=== PATIENT | female | born 1940 | race Caucasian/White ===

== ENCOUNTER 2021-03-07 11:25 | Outpatient (REF) | payer MEDICARE, SELFPAY ==
[2021-03-07 13:59] LABS: Hematocrit 43.9 % (37-47); Hemoglobin 13.8 g/dl (12.0-16.0); Mean Corpuscular HGB Conc 31.4 g/dl (31.0-35.0); Mean Corpuscular Hemoglobin 30.3 pg (27.0-33.0); Mean Corpuscular Volume 96.5 fL (80-98); Mean Platelet Volume 11.3 fL (9.4-12.3); Platelet Count 345 X10*3/uL (160-400); Red Blood Count 4.55 X10*6/uL (4.20-5.50); Red Cell Distribution Width 13.6 % (11.0-16.0); White Blood Count 7.5 X10*3/uL (4.8-10.8)
[2021-03-07 14:21] LABS: Alanine Aminotransferase 18 U/L (0-31); Albumin Level 4.5 g/dL (3.5-5.0); Alkaline Phosphatase 91 U/L (39-117); Anion Gap 18 (12-20); Aspartate Amino Transferase 28 U/L (5-31); Bilirubin Total 0.7 mg/dL (0.0-1.0); Blood Urea Nitrogen 23 mg/dL (9-16); Calcium 9.8 mg/dL (8.4-10.2); Carbon Dioxide 24 mmol/L (22-29); Chloride 106 mmol/L (96-108); Cholesterol 197 mg/dL; Estimated Glomerular Filt Rate 45; Glucose Fasting 100 mg/dL (60-99); HDL Cholesterol 39 mg/dL; LDL Cholesterol Calculated 125 mg/dl; Potassium 4.3 mmol/L (3.3-5.1); Sodium 144 mmol/L (135-145); Total Protein 7.6 g/dL (6.5-8.0); Triglycerides 167 mg/dL
[2021-03-07 14:42] LABS: TSH reflex Free T4 1.93 uIU/mL (0.32-4.0); Vitamin D 25-OH Total 37.2 ng/mL (>30)
[2021-03-07 14:48] LABS: Folate > 20.0 ng/mL (> or = 4.0); Vitamin B12 638 pg/mL (200-900)
== END 2021-03-07 11:26 | disposition home or self-care (01) ==
LOC: HO.HMGCLDS 11:25
PROVIDERS: PCP Internal Medicine; Visit Provider Internal Medicine
DX: I10 Essential (primary) hypertension (principal); R41.3 Other amnesia; F03.90 Unspecified dementia, unspecified severity, without behavioral disturbance, psychotic disturbance, mood disturbance, and anxiety; H91.90 Unspecified hearing loss, unspecified ear
CPT/HCPCS: 36415; 80053; 80061; 82306; 82607; 82746; 84443; 85027

== ENCOUNTER 2021-10-13 21:22 | Inpatient (IN) | payer MEDICARE, SELFPAY ==
--- NOTE | 2021-10-13 | ECG_ITS ---
Test Reason : AFIB Blood Pressure : / mmHG Vent. Rate : 102 BPM Atrial Rate : 102 BPM P-R Int : 124 ms QRS Dur : 064 ms QT Int : 358 ms P-R-T Axes : 053 -10 075 degrees QTc Int : 466 ms Sinus tachycardia Minimal voltage criteria for LVH, may be normal variant ( R in aVL ) Inferior infarct , age undetermined Abnormal ECG No previous ECGs available Referred By: Mark Mcfarland Electronically Signed By:PEDRO TSANG
--- NOTE | ~2021-10-13 | XR_ITS ---
EXAMINATION: XR CHEST CLINICAL INFORMATION: Fall, cough, decreased oxygen saturation. COMPARISON: None TECHNIQUE: AP view of the chest was obtained. FINDINGS: Significant asymmetric elevation of the right hemidiaphragm. The cardiomediastinal silhouette is displaced to the left by the mass effect from the elevated diaphragm. Mitral annular calcifications and atherosclerotic disease of the thoracic aorta are identified. There is diffuse interstitial prominence without dense airspace opacities, pleural effusions or pneumothorax. No evidence of acute osseous abnormalities. XR/XR chest 1V IMPRESSION: Significant asymmetric elevation of the right hemidiaphragm. Interstitial prominence which acutely could be related with an infectious or inflammatory process of the small airways. No evidence of pulmonary edema, pleural effusions or pneumothorax.
--- NOTE | ~2021-10-13 | CT_ITS ---
EXAMINATION: CT ANGIOGRAM NECK CLINICAL INFORMATION: Carotid stenosis. Further evaluate. COMPARISON: Carotid ultrasound report from 10/14/2021. TECHNIQUE: Test bolus sequences followed by intravenous administration 70 mL of Omnipaque 350. Helical imaging was performed in the axial plane from the mediastinum to the yuhaaviatam of Hernandez. Delayed postcontrast imaging of the head was also performed. The data was processed at the cat scan technologist's workstation for generation of MIP sequences. Three-dimensional volume rendered reformatted images were also generated at an offline 3-D workstation. Stenoses are assessed in accordance with NASCET criteria unless otherwise indicated. This CT examination was performed using dose optimization techniques as appropriate, variously including the following: *Automated exposure control *Adjustment of mA and/or kV according to patient size (this includes techniques or standardized protocols for targeted exams where dose is matched to indication/reason for exam; i.e. extremities or head) *Use of iterative reconstruction technique DLP: 437 mGy-cm FINDINGS: There is suboptimal timing of the contrast bolus with a greater degree of contrast opacification in the pulmonary arteries compared to the aortic arch and great vessels. The imaged aortic arch and origins of the great vessels are patent with mild atherosclerotic wall calcifications. The innominate artery and subclavian arteries appear normal. The right common carotid artery is normal in caliber. Mild atherosclerotic wall calcifications present at the right carotid bifurcation without luminal narrowing. There is minimal lipid-rich atheromatous plaque along the posterior wall of the proximal right internal carotid artery without stenosis. The remainder of the cervical right ICA is normal. The left vertebral artery opacifies normally. There is absence of contrast opacification in the right vertebral artery, indicative for an age-indeterminate vascular occlusion. There is incomplete trace contrast in the V3 segment of the right vertebral artery which is likely due to either a certain degree of collateral flow from a muscular branch or retrograde flow from the vertebrobasilar confluence. Although there is contrast in the distal intradural right vertebral artery to the level of the PICA branch, there is absence of contrast in the proximal right vertebral artery at the craniocervical junction. There is diminished contrast opacification in the proximal left common carotid artery with progressive decreased opacification in the vessel and no visible contrast seen in the distal portion of the left common carotid artery. Significant atherosclerotic wall calcification present at the left carotid bifurcation with absence of contrast opacification in the left internal carotid artery, consistent with vascular occlusion. Intracranially, there is absence of contrast within the petrous, laceral, and cavernous segments of the left internal carotid artery. There is contrast visible in the diminutive supraclinoid left internal carotid artery which may be due to retrograde flow from the ophthalmic branch. Asymmetrically diminished contrast opacification present in the left MCA vasculature compared to the right side. There is no contrast opacification of the left A1 segment which may be due to an underlying occlusion. The intracranial right internal carotid artery opacifies normally with [id number] wall calcifications in the genu and ophthalmic segments of the vessel without significant stenosis. There is a focal moderate stenosis in the communicating segment of the distal supraclinoid right internal carotid artery. The right MCA vascular complex opacifies normally. There is normal contrast opacification in the right ELBA vasculature. [id number] stenoses present in the -type right posterior cerebral artery. There is a moderate stenosis in the P2 segment of the left posterior cerebral artery. Distally, there is poor contrast opacification in the temporal branch of the left posterior cerebral artery. The imaged portions of the intracranial venous sinuses opacify normally. Moderate diffuse parenchymal volume loss noted. There is a chronic infarct in the anterior right basal ganglia. Chronic-appearing lacunar infarct noted in the left caudate head. There are age-indeterminate infarcts in the left frontal lobe. Subsegmental atelectatic changes noted in the lungs with breathing motion artifacts. Nhnh-dv-lfemfzti spondylosis visible at the C5-C6 level. No acute osseous abnormality is seen. The imaged mediastinum appears normal. Dystrophic calcification visible in the left thyroid lobe. CT/CT angio neck IMPRESSION: Absence of contrast opacification in the cervical right vertebral artery, indicative for age-indeterminate vessel occlusion. Incomplete trace contrast visible in the distal V3 segment presumed collateral flow. Progressive decreased contrast opacification in the left common carotid artery with absence of contrast in the left internal carotid artery due to vascular occlusion. Asymmetric diminished caliber and avidity of contrast opacification in the supraclinoid left internal carotid artery and left MCA vasculature compared to the right side. No visible contrast in the left A1 segment. Moderate focal stenosis in the communicating segment of the supraclinoid right internal carotid artery. Efye-ij-[id number] stenoses in the right posterior cerebral artery. Moderate stenosis in the P2 segment of the left FIELD OPERATOR. Moderate diffuse brain parenchymal volume loss and age-indeterminate infarcts in the left frontal lobe. Imaging findings reported to Dr. Moss at 7:12 PM on 10/16/2021.
--- NOTE | ~2021-10-13 | CT_ITS ---
EXAMINATION: CT CHEST WITHOUT CONTRAST CLINICAL INFORMATION: Increased interstitial markings on x-ray. Rule out pneumonia. COMPARISON: Radiograph from today. TECHNIQUE: Multidetector volumetric CT imaging of the chest was done. Axial MIP volume rendering provided. Sagittal and coronal reformatted images were obtained. This CT examination was performed using dose optimization techniques as appropriate, variously including the following: *Automated exposure control *Adjustment of mA and/or kV according to patient size (this includes techniques or standardized protocols for targeted exams where dose is matched to indication/reason for exam; i.e. extremities or head) *Use of iterative reconstruction technique DLP: 266 mGy-cm FINDINGS: ACETYLENE CUTTER: Elevated right hemidiaphragm. LUNGS: The central airways are patent. Bibasilar atelectasis noted. Minimal groundglass opacity seen in the right upper lobe with mild bronchial wall thickening noted. No dense consolidation. No pneumothorax. MEDIASTINUM: Normal heart size. Coronary artery calcification. No pericardial effusion. No mediastinal lymphadenopathy. PLEURA: There is no pleural effusion. No pleural mass or thickening. AXILLA: No lymphadenopathy. UPPER ABDOMEN: Unremarkable. OSSEOUS STRUCTURES: No acute or suspicious osseous abnormality. Mild degenerative change of the spine. CT/CT chest wo con IMPRESSION: Prominent elevation of the right hemidiaphragm. No dense consolidation. Mild bronchial wall thickening with groundglass opacification noted in the right upper lobe which could be infectious or inflammatory. Fleischner guidelines were followed.
--- NOTE | ~2021-10-13 | US_ITS ---
EXAMINATION: US EXTRACRANIAL CAROTID DUPLEX, BILATERAL CLINICAL INFORMATION: History of fall. Subacute stroke. COMPARISON: None TECHNIQUE: Real-time ultrasound and Doppler techniques (integrating B-mode 2-D vascular images, Doppler spectral analysis and color-flow Doppler imaging) were utilized to interrogate the extracranial carotid arteries, the vertebral arteries and proximal subclavian arteries bilaterally. The degree of stenosis is determined by criteria similar to NASCET. FINDINGS: Right Side: Mild atherosclerotic plaque seen in the bifurcation/proximal ICA region. The common carotid artery peak systolic velocity proximally is 79 cm/s and distally 61 cm/s. The proximal internal carotid artery velocities are 101 cm/s systolic and 22 cm/s diastolic. The proximal external carotid artery PSV is 123 cm/s. The vertebral artery shows antegrade flow, peak velocity of 19 cm/s. The subclavian artery waveforms are normal, peak velocity of 146 cm/s. Left Side: Right Side: Moderate to severe atherosclerotic plaque seen in the bifurcation/bulb region. The common carotid artery peak systolic velocity proximally is 25 cm/s and distally 13 cm/s. The distal CCA has weak, tardus parvus flow pattern The proximal internal carotid artery velocities are 57 cm/s systolic and 15 cm/s diastolic. ICA/CCA ratio is 4.38. The proximal external carotid artery PSV is 581 cm/s. The vertebral artery shows antegrade flow, peak velocity of 92 cm/s. The subclavian artery waveforms are normal, peak velocity of 225 cm/s. US/US carotid duplex BI IMPRESSION: There is carotid artery atherosclerotic disease. On the right, the mild atherosclerotic plaque causes < 50% ICA stenosis. There is no hemodynamically significant stenosis on the right. However, on the left, Doppler findings are more complex. There is diminished velocity flow in the left CCA which has tardus parvus waveform. This suggest possibility of a more proximal stenosis. There are Doppler imaging findings of severe stenosis of the proximal left external carotid artery. Although the left ICA only has a peak systolic velocity of 57 cm/s, the ICA/CCA ratio is abnormal (>4), which raises suspicion for hemodynamically significant stenosis (possible >70% stenosis). Consider correlation with CT angiography of the neck.
--- NOTE | ~2021-10-13 | CT_ITS ---
EXAMINATION: CT HEAD WITHOUT CONTRAST CT CERVICAL SPINE WITHOUT CONTRAST CLINICAL INFORMATION: Fall, head injury, rule out fracture, bleed or stroke. COMPARISON: None. TECHNIQUE: Contiguous axial imaging was performed from the skull base to vertex without intravenous administration of contrast. Contiguous axial imaging was performed from the upper chest through the skull base without intravenous administration of contrast. Coronal and sagittal reformats were obtained at the acquisition workstation. This CT examination was performed using dose optimization techniques as appropriate, variously including the following: *Automated exposure control *Adjustment of mA and/or kV according to patient size (this includes techniques or standardized protocols for targeted exams where dose is matched to indication/reason for exam; i.e. extremities or head) *Use of iterative reconstruction technique DLP: 335 mGy-cm FINDINGS: Head: There are age indeterminate infarctions in the left frontal lobe (image 50 of series 3) and more superiorly on the precentral sulcus (image 59 of series 3). There is no evidence of significant associated mass effect or hemorrhagic conversion. There is moderate chronic microangiopathy and generalized cerebral volume loss with mineralization of the basal ganglia and chronic lacunar infarctions. There is no evidence of obstructive hydrocephalus. No abnormal mass effect or midline shift. No extra-axial fluid collections. No acute soft tissue or osseous abnormalities. The mastoid air cells and paranasal sinuses are clear. Cervical Spine: The atlantooccipital and atlantoaxial articulations remain well aligned. Straightening of the normal cervical lordosis. Otherwise, there is anatomic alignment of the vertebral bodies and posterior elements. No evidence of acute fracture or subluxation. There is multilevel cervical spondylosis leading to varying degrees of neural foraminal encroachment and central canal narrowing. There is no prevertebral soft tissue swelling. There is a calcification in the left lobe of the thyroid. Remaining of the cervical soft tissues are within normal limits. Evaluation of the lung apices is limited by motion. However accounting for these limitations, there is architectural distortion and pleural thickening in the lung apices with subpleural calcifications. CT/CT cervical spine wo con IMPRESSION: Age indeterminate cerebrovascular accidents in the left frontal lobe. These appear to be subacute to chronic and without associated mass effect nor hemorrhagic compression. However, certainty of the acuity cannot be obtained in the absence of prior imaging and if indicated further characterization could be performed with a MR of the brain. No acute intraparenchymal bleeding. No acute cervical fractures or malalignment. Multilevel cervical spondylosis. This critical result was discussed with Dr Ramirez at 10/13/2021 11:26 PM and it was ascertained that the content and urgency of the report was understood at the time of direct communication.
[2021-10-13 21:34] VITALS: BP 162/91; PULSE 110; PULSE 115; RESP 18; TEMP 37.1; O2SAT 91; O2SAT 92; BMI 29.9
--- NOTE | 2021-10-13 22:08 | ED.GENADULT ---
HPI - General Adult General Chief complaint: Weakness Stated complaint: weakness/tremors, new on a-fib (increase in falls) Time Seen by Provider: 10/13/21 21:50 Source: patient and family (, David) Mode of arrival: ambulatory Limitations: no limitations History of Present Illness HPI narrative: 80-year-old female who presents emergency department for evaluation of a fall at home. The information came from the patient's David. He states that the patient was sitting at the table on her walker which has a seat. The patient was eating a sandwich. The patient went in the other room to turn on the news. He states that he heard the patient fall and he went back into the kitchen and she was lying on the kitchen floor. He does not think that she had any loss of consciousness but the patient states she did strike her head when she fell. The states that the patient has been weak over the past several days without any specific symptoms. He states that she has been more confused over the past several months and the patient's PCP wanted to get a CT scan of her head which the patient refused. The patient currently is complaining of headache, neck pain and back pain from the fall. She denied chest pain, shortness of breath. The states the patient has had a cough times several months. The patient denied nausea, vomiting, abdominal pain or diarrhea. She also denied frequency, urgency or dysuria. Related Data Previous Rx's Medication Instructions Recorded amlodipine 10 mg tablet 10 mg PO DAILY #90 tab 03/07/21 metoprolol succinate 100 mg 100 mg PO BEDTIME #90 tab 03/07/21 tablet,extended release 24 hr triamterene 37.5 1 tab PO DAILY #90 tab 03/07/21 mg-hydrochlorothiazide 25 mg tablet Allergies Allergy/AdvReac Type Severity Reaction Status Date / Time No Known Allergies Allergy Verified 10/10/21 11:26 Review of Systems Review of Systems: Yes all other systems are reviewed and are negative [facility] Past Medical History [facility] Narrative: Social history: The patient is and she lives with her . Her son also lives up stairs with his girlfriend and they help the patient care for herself. The patient denies tobacco use. She states she drinks alcohol in moderation but did not drink tonight. She denies alcohol use. Medical History Bilateral cataracts Dementia Hearing loss HTN (hypertension) Incontinence Tremor Vaginal prolapse Vitamin D deficiency Family History Family History Father Alzheimer disease Mother Alzheimer disease HTN (hypertension) Social History Social History Housing: House Alcohol intake: current Alcohol intake frequency: does not drink Patient Tobacco Use Status: Never used Tobacco e-Cigarette/Vaping Use: Never Used Advance Directives: No Advance Directives Information Provided: Yes Current occupational status: retired Physical Exam Vital Signs: Vital Signs: Last Vital Signs Temp 98.8 F 10/13/21 21:34 Pulse 89 10/13/21 23:38 Resp 16 10/13/21 23:38 BP 140/77 H 10/13/21 23:38 Pulse Ox 95 10/13/21 23:38 BMI result Body Mass Index 29.9 Const: General: cooperative and no acute distress Orientation/consciousness: oriented to person and oriented to place Limitations: no limitations HENMT: Head: Yes normal to inspection, Yes normocephalic and Yes atraumatic Ears: external ears normal General nose exam: Normal external nose present Face and sinus: Yes normal facial exam Mouth: Normal oral and palatal mucosa present Throat: Yes posterior oropharynx normal Eyes: General: appearance normal, both eyes and all related structures Pupils: Equal, round and reactive pupils present Neck: Other: Tender cervical spine and trapezius muscles bilaterally Neck: Yes normal visual inspection, Yes no lymphadenopathy, Yes trachea midline and Yes supple Chest: Chest palpation & inspection: normal inspection of the chest and normal palpation of entire chest wall Resp: Effort & Inspection: normal respiratory effort and able to speak in complete sentences Auscultation: clear to auscultation bilaterally Cardio: Rate: regular rate Rhythm: regular rhythm Heart sounds: S1 normal heart sound present, S2 normal heart sound present and no murmurs GI: Inspection: Yes normal to inspection Palpation (GI): Soft to palpation, nontender and no guarding Auscultation: normal bowel sounds : General: Yes no CVA tenderness Back/Spine/Pelvis: Back: no CVA tenderness Skin: General skin exam: no rashes or lesions noted Neuro: General: oriented to person and oriented to place Cranial nerves: Yes CN's II-XII intact bilaterally and Yes Equal, round and reactive pupils present Cognition (Neuro): normal cognition Motor exam (neuro): 5/5 motor strength present throughout Extrem: General: Yes normal to inspection Psych: Appearance: grossly normal Speech and movement: Normal speech and movement present Affect: normal affect Attitude: cooperative Thought process: Normal thought process present Thought content: Normal thought content present Course Course Course Narrative: 80-year-old female who presents emergency department for evaluation of injuries from a fall that occurred just prior to coming to the emergency department. Patient was at the kitchen table, eating a sandwich, sitting sitting on her walker which had a chair when she fell in the kitchen. The believes that the patient tried to push back with a walker causing her to fall to the floor. The did not witness the fall but came immediately after she fell and states the patient was awake and alert conscious. The patient has been having weakness over the past several days, a chronic cough x6 months and increased confusion over the past 2 months. Patient currently complain of a headache, neck pain and back pain otherwise had no other complaints. Initial vital signs revealed an elevated pulse of 115, low O2 saturation of 91% on room air otherwise were unremarkable. Physical examination did reveal neck tenderness otherwise was unremarkable. I ordered a CBC, CMP, CK, blood alcohol level, lipase, troponin, EKG, urinalysis, urine drug screen, chest x-ray one view, CT scan of the head and cervical spine. 2359: Laboratory evaluation: CBC was normal. CMP revealed elevated chloride of 109, low bicarb of 21, elevated BUN of 50 with an elevated creatinine of 1.81 this is new compared to 03/07/2021 when the BUN and creatinine were 23 and 1.17. BNP was only slightly elevated 102. Chest x-ray was concerning for elevated right hemidiaphragm and interstitial infiltrates. CT scan of the head did reveal a right frontal lobe infarct which the radiologist felt was a subacute or chronic infarct. There was no mass effect. CT scan of the chest without the IV contrast is concerning for possible right upper lobe infiltrate. Given these finding which were resulted at 11:54 p.m. I ordered blood cultures x2, lactic acid. The patient will be treated with normal saline IV x1 L, ceftriaxone 1 g IV and azithromycin 500 mg IV. I will discuss admission with the covering hospitalist. Medical Decision Making Lab Data Result diagrams: 10/13/21 22:12 10/13/21 22:12 Labs: Lab Results 10/13/21 10/13/21 10/13/21 Range/Units 22:12 22:12 22:12 WBC 9.5 (4.8-10.8) X10*3/uL RBC 4.11 L (4.20-5.50) X10*6/uL Hgb 13.1 (12.0-16.0) g/dl Hct 39.9 (37.0-47.0) % MCV 97.1 (80.0-98.0) fL MCH 31.9 (27.0-33.0) pg MCHC 32.8 (31.0-35.0) g/dl RDW 12.5 (11.0-16.0) % Plt Count 295 (160-400) X10*3/uL MPV 10.5 (9.4-12.3) fL Immature Gran % (Auto) 0.4 (0.0-0.4) % Neut % (Auto) 85.2 H (45-73) % Lymph % (Auto) 6.3 L (20-40) % [place] % (Auto) 7.8 (2-11) % Eos % (Auto) 0.2 (0-4) % Baso % (Auto) 0.1 (0-2) % Lymph # (Auto) 0.6 L (1.2-4.9) X10*3/uL [place] # (Auto) 0.7 (0.1-1.2) X10*3/uL Eos # (Auto) 0.0 (0.0-0.4) X10*3/uL Baso # (Auto) 0.0 (0.0-0.2) X10*3/uL Abs Immat Gran (auto) 0.04 H (0.00-0.03) X10*3/uL Absolute Neuts (auto) 8.1 (2.0-8.3) x10*3/uL Absolute Nucleated RBC 0.000 (0.0-0.012) X10*3/uL Nucleated RBC % (auto) 0.0 (0.0-0.2) /100WBC Sodium 143 (135-145) mmol/L Potassium 4.8 (3.3-5.1) mmol/L Chloride 109 H (96-108) mmol/L Carbon Dioxide 21 L (22-29) mmol/L Anion Gap 18 (12-20) BUN 51 H (9-16) mg/dL Creatinine 1.81 H (0.5-1.4) mg/dL Estim Creat Clear Calc 26.5 Estimated GFR 27 Random Glucose 126 H (60-115) mg/dL Calcium 9.7 (8.4-10.2) mg/dL Total Bilirubin 0.6 (0.0-1.0) mg/dL AST 26 (5-31) U/L ALT 18 (0-31) U/L Alkaline Phosphatase 77 (39-117) U/L Total Creatine Kinase 149 H (26-140) U/L Troponin I High Sens 53.7 H* (<3.5-17.0) ng/L B-Natriuretic Peptide 102 H (<100) pg/mL Total Protein 7.3 (6.5-8.0) g/dL Albumin 4.2 (3.5-5.0) g/dL Lipase 53 (8-78) U/L Ethyl Alcohol mg/dL COVID-19 ([facility]) (Negative) COVID-19 Clin Com 10/13/21 10/13/21 Range/Units 22:12 22:12 WBC (4.8-10.8) X10*3/uL RBC (4.20-5.50) X10*6/uL Hgb (12.0-16.0) g/dl Hct (37.0-47.0) % MCV (80.0-98.0) fL MCH (27.0-33.0) pg MCHC (31.0-35.0) g/dl RDW (11.0-16.0) % Plt Count (160-400) X10*3/uL MPV (9.4-12.3) fL Immature Gran % (Auto) (0.0-0.4) % Neut % (Auto) (45-73) % Lymph % (Auto) (20-40) % [place] % (Auto) (2-11) % Eos % (Auto) (0-4) % Baso % (Auto) (0-2) % Lymph # (Auto) (1.2-4.9) X10*3/uL [place] # (Auto) (0.1-1.2) X10*3/uL Eos # (Auto) (0.0-0.4) X10*3/uL Baso # (Auto) (0.0-0.2) X10*3/uL Abs Immat Gran (auto) (0.00-0.03) X10*3/uL Absolute Neuts (auto) (2.0-8.3) x10*3/uL Absolute Nucleated RBC (0.0-0.012) X10*3/uL Nucleated RBC % (auto) (0.0-0.2) /100WBC Sodium (135-145) mmol/L Potassium (3.3-5.1) mmol/L Chloride (96-108) mmol/L Carbon Dioxide (22-29) mmol/L Anion Gap (12-20) BUN (9-16) mg/dL Creatinine (0.5-1.4) mg/dL Estim Creat Clear Calc Estimated GFR Random Glucose (60-115) mg/dL Calcium (8.4-10.2) mg/dL Total Bilirubin (0.0-1.0) mg/dL AST (5-31) U/L ALT (0-31) U/L Alkaline Phosphatase (39-117) U/L Total Creatine Kinase (26-140) U/L Troponin I High Sens (<3.5-17.0) ng/L B-Natriuretic Peptide (<100) pg/mL Total Protein (6.5-8.0) g/dL Albumin (3.5-5.0) g/dL Lipase (8-78) U/L Ethyl Alcohol < 10 mg/dL COVID-19 ([facility]) Negative (Negative) COVID-19 Clin Com See Note ECG Data Attestation: I personally reviewed and interpreted this ECG as follows: Interpretation: Of 0: Sinus tachycardia with rate of 102, normal MA interval, QRS duration, QTC intervals, no ST segment elevation, no ST segment depression, Q-waves in 3 and AVF, no T-wave abnormalities, no PACs, no PVCs, 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
[2021-10-13 22:21] LABS: MANUAL DIFF FLAG NO
[2021-10-13 22:23] LABS: Basophils Percent Auto 0.1 % (0-2); Eosinophils Percent Auto 0.2 % (0-4); Hematocrit 39.9 % (37.0-47.0); Hemoglobin 13.1 g/dl (12.0-16.0); Imm Gran Abs Auto 0.04 X10*3/uL (0.00-0.03); Imm Gran Pct Auto 0.4 % (0.0-0.4); Lymphocytes Absolute Auto 0.6 X10*3/uL (1.2-4.9); Lymphocytes Percent Auto 6.3 % (20-40); Mean Corpuscular HGB Conc 32.8 g/dl (31.0-35.0); Mean Corpuscular Hemoglobin 31.9 pg (27.0-33.0); Mean Corpuscular Volume 97.1 fL (80.0-98.0); Mean Platelet Volume 10.5 fL (9.4-12.3); Monocytes Absolute Auto 0.7 X10*3/uL (0.1-1.2); Monocytes Percent Auto 7.8 % (2-11); Neutrophils Absolute Auto 8.1 x10*3/uL (2.0-8.3); Neutrophils Percent Auto 85.2 % (45-73); Platelet Count 295 X10*3/uL (160-400); Red Blood Count 4.11 X10*6/uL (4.20-5.50); Red Cell Distribution Width 12.5 % (11.0-16.0); White Blood Count 9.5 X10*3/uL (4.8-10.8)
[2021-10-13 22:35] LABS: Ethanol < 10 mg/dL
[2021-10-13 22:38] LABS: COVID-19 Test Negative (Negative); IDNOW Serial# 9DD0AD1C
[2021-10-13 22:39] LABS: Alanine Aminotransferase 18 U/L (0-31); Albumin Level 4.2 g/dL (3.5-5.0); Alkaline Phosphatase 77 U/L (39-117); Anion Gap 18 (12-20); Aspartate Amino Transferase 26 U/L (5-31); Bilirubin Total 0.6 mg/dL (0.0-1.0); Blood Urea Nitrogen 51 mg/dL (9-16); Calcium 9.7 mg/dL (8.4-10.2); Carbon Dioxide 21 mmol/L (22-29); Chloride 109 mmol/L (96-108); Creatinine Clr Calc Pharmacy 26.5; Estimated Glomerular Filt Rate 27; Glucose Random 126 mg/dL (60-115); Lipase 53 U/L (8-78); Potassium 4.8 mmol/L (3.3-5.1); Sodium 143 mmol/L (135-145); Total Protein 7.3 g/dL (6.5-8.0)
[2021-10-13 22:45] LABS: Troponin-I High Sensitivity 53.7 ng/L (<3.5-17.0)
[2021-10-13 23:38] VITALS: BP 140/77; PULSE 89; RESP 16; O2SAT 95
[2021-10-13 23:50] LABS: B Type Natriuretic Peptide 102 pg/mL (<100)
[2021-10-14] MEDS: 0.9 % Sodium Chloride 1,000 ML 999 ML IV (00:17)
[2021-10-14] MEDS: cefTRIAXone sodium 1 GM in 0.9 % Sodium Chloride 50 ML IV ×2 (00:18→21:39)
[2021-10-14] MEDS: Azithromycin 500 MG in 0.9 % Sodium Chloride 250 ML 125 MG IV (00:19)
[2021-10-14 00:39] LABS: Lactic Acid 0.8 mmol/L (0.5-2.0)
--- NOTE | 2021-10-14 01:02 | P.HPHOSP_ITS ---
History of Present Illness Date of Service: 10/14/21 Chief Complaint: fall 80-year-old female with past medical history of advanced dementia, hypertension, who was brought into the hospital by her with complaints of a fall. On my exam patient is alert, but confused and unable to give much history. Theref ore history is obtained from ED physician as well as EMR. According to the hospital in patient was sitting at the table on this year over walker eating a sandwich and a soon as he left to go to the other room he heard the patient fall in the kitchen, he would back and found her lying on the kitchen floor. There does not appear to be any loss of consciousness but the patient did report that she hit her head when she fell. Is also report of patient having been feeling weak over the past several days. She seemed to be more confused over the past several months and generally weaker. A CT was ordered by her PCP but the patient refused. I am unable to get review of system is patient is confused and is not really giving appropriate answers. On arrival to the ED patient is hemodynamically stable with no significant abnormal vitals for a slightly elevated blood pressure of 140/77 Labs are significant for WBC count of 9.5, BUN of 51, creatinine of 1.81, initial troponin of 53.7, increased to 54.8, BNP of 102, Chest CT showed prominent elevation of the right hemidiaphragm, mild bronchial wall thickening with ground-glass opacification noted in the right upper lobe which could be infectious versus inflammatory Head CT showed age indeterminate cerebrovascular accident in the left frontal lobe, subacute to chronic without associated mass effect nor hemorrhagic conversion. Patient will be admitted for further management Review of Systems Review of Systems: Yes all other systems are reviewed and are negative [facility] Medical History Bilateral cataracts Dementia Hearing loss HTN (hypertension) Incontinence Tremor Vaginal prolapse Vitamin D deficiency Family History Father Alzheimer disease Mother Alzheimer disease HTN (hypertension) Social History Housing: House Alcohol intake: current Alcohol intake frequency: does not drink Patient Tobacco Use Status: Never used Tobacco e-Cigarette/Vaping Use: Never Used Advance Directives: No Advance Directives Information Provided: Yes Current occupational status: retired [employer] Allergies Allergy/AdvReac Type Severity Reaction Status Date / Time No Known Allergies Allergy Verified 10/10/21 11:26 Active Medications: Current Medications Azithromycin 500 mg/ Sodium (Chloride) 250 mls @ 125 mls/hr IV ONCE STA Stop: 10/14/21 01:12 Last Admin: 10/14/21 00:19 Dose: 125 mls/hr Documented by: Physical Exam Vital Signs and Narrative: Vital Signs: Last Vital Signs Temp 98.8 F 10/13/21 21:34 Pulse 89 10/13/21 23:38 Resp 16 10/13/21 23:38 BP 140/77 H 10/13/21 23:38 Pulse Ox 95 10/13/21 23:38 BMI result Body Mass Index 29.9 Const: Other: Patient is alert, awake but confused General: cooperative and no acute distress Eyes: Other: Left eye pupil is dilated, lag in conversion when complared to right Resp: Effort & Inspection: normal respiratory effort Auscultation: clear to auscultation bilaterally Cardio: Rate: regular rate Rhythm: regular rhythm GI: Palpation (GI): Soft to palpation Auscultation: normal bowel sounds Skin: General skin exam: no rashes or lesions noted Neuro: Other: left eye as above, unable to conduct cranial never exams appropriately as pt not following strength is 5/5 in all extremities Extrem: General: Yes normal to inspection and Yes no pedal edema Results Labs CBC and Chem 7: 10/13/21 22:12 10/13/21 22:12 Labs: Laboratory Results - last 24 hr 10/13/21 10/13/21 10/13/21 22:12 22:12 22:12 MCV 97.1 MCH 31.9 MCHC 32.8 RDW 12.5 Plt Count 295 MPV 10.5 Immature Gran % (Auto) 0.4 Neut % (Auto) 85.2 H Lymph % (Auto) 6.3 L [place] % (Auto) 7.8 Eos % (Auto) 0.2 Baso % (Auto) 0.1 Lymph # (Auto) 0.6 L [place] # (Auto) 0.7 Eos # (Auto) 0.0 Baso # (Auto) 0.0 Abs Immat Gran (auto) 0.04 H Absolute Neuts (auto) 8.1 Absolute Nucleated RBC 0.000 Nucleated RBC % (auto) 0.0 Anion Gap 18 Estim Creat Clear Calc 26.5 Estimated GFR 27 Random Glucose 126 H Lactic Acid Calcium 9.7 Total Bilirubin 0.6 AST 26 ALT 18 Alkaline Phosphatase 77 Total Creatine Kinase 149 H Troponin I High Sens 53.7 H* B-Natriuretic Peptide 102 H Total Protein 7.3 Albumin 4.2 Lipase 53 Ethyl Alcohol COVID-19 ([facility]) COVID-19 Clin Com 10/13/21 10/13/21 10/14/21 22:12 22:12 00:06 MCV MCH MCHC RDW Plt Count MPV Immature Gran % (Auto) Neut % (Auto) Lymph % (Auto) [place] % (Auto) Eos % (Auto) Baso % (Auto) Lymph # (Auto) [place] # (Auto) Eos # (Auto) Baso # (Auto) Abs Immat Gran (auto) Absolute Neuts (auto) Absolute Nucleated RBC Nucleated RBC % (auto) Anion Gap Estim Creat Clear Calc Estimated GFR Random Glucose Lactic Acid 0.8 Calcium Total Bilirubin AST ALT Alkaline Phosphatase Total Creatine Kinase Troponin I High Sens B-Natriuretic Peptide Total Protein Albumin Lipase Ethyl Alcohol < 10 COVID-19 ([facility]) Negative COVID-19 Clin Com See Note Imaging Radiologist's Impressions: Impressions Chest X-Ray 10/13/21 22:33 IMPRESSION: Significant asymmetric elevation of the right hemidiaphragm. Interstitial prominence which acutely could be related with an infectious or inflammatory process of the small airways. No evidence of pulmonary edema, pleural effusions or pneumothorax. Cervical Spine CT 10/13/21 22:48 IMPRESSION: Age indeterminate cerebrovascular accidents in the left frontal lobe. These appear to be subacute to chronic and without associated mass effect nor hemorrhagic compression. However, certainty of the acuity cannot be obtained in the absence of prior imaging and if indicated further characterization could be performed with a MR of the brain. No acute intraparenchymal bleeding. No acute cervical fractures or malalignment. Multilevel cervical spondylosis. This critical result was discussed with Dr Ramirez at 10/13/2021 11:26 PM and it was ascertained that the content and urgency of the report was understood at the time of direct communication. Head CT 10/13/21 22:48 IMPRESSION: Age indeterminate cerebrovascular accidents in the left frontal lobe. These appear to be subacute to chronic and without associated mass effect nor hemorrhagic compression. However, certainty of the acuity cannot be obtained in the absence of prior imaging and if indicated further characterization could be performed with a MR of the brain. No acute intraparenchymal bleeding. No acute cervical fractures or malalignment. Multilevel cervical spondylosis. This critical result was discussed with Dr Ramirez at 10/13/2021 11:26 PM and it was ascertained that the content and urgency of the report was understood at the time of direct communication. Chest CT 10/13/21 23:30 IMPRESSION: Prominent elevation of the right hemidiaphragm. No dense consolidation. Mild bronchial wall thickening with groundglass opacification noted in the right upper lobe which could be infectious or inflammatory. Fleischner guidelines were followed. Assessment and Plan (1) Pneumonia: Qualifiers: Laterality: right Lung location: upper lobe of lung Pneumonia type: due to unspecified organism Qualified Code(s): J18.9 - Pneumonia, unspecified organism Status: Acute (2) Acute kidney injury: Status: Acute (3) Stroke: Qualifiers: Laterality of affected vessel: left Status: Acute (4) Elevated troponin: Status: Acute (5) Fall: Qualifiers: Encounter type: initial encounter Qualified Code(s): W19.XXXA - Unspecified fall, initial encounter Status: Acute 80-year-old female with history of advanced dementia presents to the hospital after having a fall at home. Found to have pneumonia, CHELITA as well as stroke # pneumonia - most likely community-acquired - COVID 19 negative - afebrile, no leukocytosis - will start her on IV antibiotics - follow cultures # CHELITA - most likely secondary to dehydration given history of dementia and recent weakness - will start her on IV fluids - follow BMP # stroke - CT of the head showed findings of subacute versus chronic stroke - has left eye pupil dilation - WILL START ON ASPIRIN, HIGH-DOSE STATIN, - will consult neurology - patient unable to have CT angiogram done due to CHELITA - will hold off on MRI pending neurology recommendation - echocardiogram - physical therapy and liver profile # elevated troponin - unclear etiology - denies having any chest pain - no EKG changes to suggest ACS - no delta on the high sensitivity troponin - monitor on telemetry # fall - sepsis secondary to weakness/stroke - physical therapy consult DVT prophylaxis: Lovenox Quality Stroke Does the patient have a stroke diagnosis?: No VTE Prior VTE?: No VTE Risk Level:: Medical - moderate - high VTE Device Contraindication: Treatment Not Indicated VTE Drug Contraindication: N/A - Med Ordered
[2021-10-14 02:04] VITALS: BP 125/71; PULSE 87; RESP 18; O2SAT 93
[2021-10-14 02:22] LABS: Troponin-I High Sensitivity 54.8 ng/L (<3.5-17.0)
--- NOTE | 2021-10-14 04:43 | PC.NURSE ---
upon arrival to the ER pt appeared to be confused by stating its 1922 no focal deficits in regards to a stroke based on my examination, pt has a hx of COPD and dementia, pt has pulled IV out, physician thinks pt had a stroke within the past two weeks.
[2021-10-14 06:13] VITALS: BP 141/70; PULSE 80; RESP 18; TEMP 36.4; O2SAT 95
[2021-10-14] MEDS: Lactated Ringers 1,000 ML 100 ML IVCONT ×3 (06:21→20:05)
[2021-10-14] MEDS: Enoxaparin Sodium 40 MG/0.4 ML SYRINGE SUBCUT (06:21)
[2021-10-14] MEDS: Atorvastatin Calcium 40 MG TABLET PO ×2 (07:40→20:06)
[2021-10-14] MEDS: Aspirin Enteric Coated 81 MG TABLET.DR PO (07:40)
--- NOTE | 2021-10-14 07:42 | PC.NURSE ---
patient a&ox3, ivf running per order, pt medicated with meds previously due, no c/o pain or discomfort, pt has audible in/ex wheezing, will notify provider and continue to monitor.
[2021-10-14 08:26] LABS: MANUAL DIFF FLAG NO
[2021-10-14 08:37] LABS: Basophils Percent Auto 0.2 % (0-2); Eosinophils Absolute Auto 0.1 X10*3/uL (0.0-0.4); Eosinophils Percent Auto 1.7 % (0-4); Hematocrit 38.4 % (37.0-47.0); Hemoglobin 12.2 g/dl (12.0-16.0); Imm Gran Abs Auto 0.03 X10*3/uL (0.00-0.03); Imm Gran Pct Auto 0.4 % (0.0-0.4); Lymphocytes Absolute Auto 1.2 X10*3/uL (1.2-4.9); Mean Corpuscular HGB Conc 31.8 g/dl (31.0-35.0); Mean Corpuscular Hemoglobin 31.4 pg (27.0-33.0); Mean Platelet Volume 11.2 fL (9.4-12.3); Monocytes Absolute Auto 0.8 X10*3/uL (0.1-1.2); Monocytes Percent Auto 9.5 % (2-11); Neutrophils Absolute Auto 6.2 x10*3/uL (2.0-8.3); Neutrophils Percent Auto 74.2 % (45-73); Platelet Count 297 X10*3/uL (160-400); Red Blood Count 3.88 X10*6/uL (4.20-5.50); Red Cell Distribution Width 12.5 % (11.0-16.0); White Blood Count 8.3 X10*3/uL (4.8-10.8)
[2021-10-14 08:47] LABS: Anion Gap 16 (12-20); Blood Urea Nitrogen 43 mg/dL (9-16); Calcium 9.2 mg/dL (8.4-10.2); Carbon Dioxide 24 mmol/L (22-29); Chloride 109 mmol/L (96-108); Cholesterol 181 mg/dL; Creatinine Clr Calc Pharmacy 33.2; Estimated Glomerular Filt Rate 35; Glucose Random 95 mg/dL (60-115); HDL Cholesterol 35 mg/dL; LDL Cholesterol Calculated 119 mg/dl; Potassium 4.1 mmol/L (3.3-5.1); Sodium 145 mmol/L (135-145); Triglycerides 136 mg/dL
[2021-10-14 09:15] VITALS: BP 141/70; PULSE 80
[2021-10-14] MEDS: amLODIPine Besylate 10 MG TABLET PO (09:15)
[2021-10-14 09:42] LABS: Procalcitonin 0.06 ng/mL
[2021-10-14 10:10] LABS: Adenovirus PCR Not Detected (Not Detect.); Bordetella parapertussis PCR Not Detected (Not Detect.); Bordetella pertussis PCR Not Detected (Not Detect.); Chlamydia pneumoniae PCR Not Detected (Not Detect.); Coronavirus 229E PCR Not Detected (Not Detect.); Coronavirus HKU1 PCR Not Detected (Not Detect.); Coronavirus NL63 PCR Not Detected (Not Detect.); Coronavirus OC43 PCR Not Detected (Not Detect.); Human metapneumovirus PCR Not Detected (Not Detect.); Influenza A PCR Not Detected (Not Detect.); Influenza B PCR Not Detected (Not Detect.); Mycoplasma pneumoniae PCR Not Detected (Not Detect.); Parainfluenza 1 PCR Not Detected (Not Detect.); Parainfluenza 2 PCR Not Detected (Not Detect.); Parainfluenza 3 PCR Not Detected (Not Detect.); Parainfluenza 4 PCR Not Detected (Not Detect.); RSV PCR Not Detected (Not Detect.); Rhino/Enterovirus PCR Not Detected (Not Detect.); SARS-CoV-2 PCR Not Detected (Not Detect.)
--- NOTE | 2021-10-14 11:05 | PM.NEUROCN ---
History of Present Illness Data of Consult Service Date: 10/14/21 Primary Care Provider: Unknown Physician HPI Reason for consult: Altered mental status 80yr old woman with advanced dementia admitted from home after falling off chair and worsening confusion. Unable to give any information. CT brain shows subacute to chronic left frontal infarct and generalized atrophy Review of Systems Review of Systems: Yes all other systems are reviewed and are negative [facility] Past Medical History Medical History Bilateral cataracts Dementia Hearing loss HTN (hypertension) Incontinence Tremor Vaginal prolapse Vitamin D deficiency Family History Family History Father Alzheimer disease Mother Alzheimer disease HTN (hypertension) Social History Social History Housing: House Alcohol intake: current Alcohol intake frequency: does not drink Patient Tobacco Use Status: Never used Tobacco e-Cigarette/Vaping Use: Never Used Advance Directives: No Advance Directives Information Provided: Yes Current occupational status: retired [employer] Allergies Allergy/AdvReac Type Severity Reaction Status Date / Time No Known Allergies Allergy Verified 10/10/21 11:26 Active Medications: Current Medications Acetaminophen (Acetaminophen 325 Mg Tablet) 650 mg PO Q6H PRN PRN Reason: Pain, Mild (Pain Scale 1-3) Albuterol Sulfate (Albuterol Sulfate (0.083%) 2.5 Mg/3 Ml Vial.Neb) 2.5 mg INHALE Q2H PRN PRN Reason: shortness of breath or wheeze Albuterol/Ipratropium (Albuterol/Iprat 2.5/0.5mg 3 Ml Ampul.Neb) 3 ml INHALE RQ6H WHILE AWAKE [facility] Amlodipine Besylate (Amlodipine Besylate 10 Mg Tablet) 10 mg PO DAILY [facility]; Protocol Last Admin: 10/14/21 09:15 Dose: 10 mg Documented by: Aspirin (Aspirin Enteric Coated 81 Mg Tablet.) 81 mg PO DAILY [facility] Last Admin: 10/14/21 07:43 Dose: Not Given Documented by: Atorvastatin Calcium (Atorvastatin Calcium 40 Mg Tablet) 40 mg PO BEDTIME [facility] Last Admin: 10/14/21 07:40 Dose: 40 mg Documented by: Docusate Sodium (Docusate Sodium 100 Mg Capsule) 100 mg PO DAILY PRN PRN Reason: Constipation Enoxaparin Sodium (Enoxaparin Sodium 40 Mg/0.4 Ml Syringe) 40 mg SUBCUT Q24H [facility] Last Admin: 10/14/21 06:21 Dose: 40 mg Documented by: Ceftriaxone Sodium 1 gm/ (Sodium Chloride) 50 mls @ 100 mls/hr IV Q24H [facility] Lactated Ringer's (Lr) 1,000 mls @ 100 mls/hr IVCONT .Q10H [facility] Last Admin: 10/14/21 06:21 Dose: 100 mls/hr Documented by: Doxycycline Hyclate 100 mg/ (Sodium Chloride) 250 mls @ 166.67 mls/hr IV Q12H [facility] Metoprolol Succinate (Metoprolol Succinate Er 100 Mg Tab.Er.24h) 100 mg PO BEDTIME [facility]; Protocol Ondansetron HCl (Ondansetron Hcl 4 Mg/2 Ml Vial) 4 mg IVPUSH Q8H PRN PRN Reason: Nausea and Vomiting Sodium Chloride (0.9 % Sodium Chloride Flush 3 Ml Syringe) 3 ml IVFLUSH QSHIFT [facility] Last Admin: 10/14/21 07:40 Dose: Not Given Documented by: Physical Exam Vital Signs: Vital Signs: Last Vital Signs Temp 97.6 F 10/14/21 06:13 Pulse 80 10/14/21 09:15 Resp 18 10/14/21 06:13 BP 141/70 H 10/14/21 09:15 Pulse Ox 95 10/14/21 06:13 BMI result Body Mass Index 29.9 Const: Other: Patient is alert, awake but confused General: cooperative and no acute distress Orientation/consciousness: oriented to person Limitations: no limitations HENMT: Head: Yes normal to inspection, Yes normocephalic and Yes atraumatic Ears: external ears normal General nose exam: Normal external nose present Face and sinus: Yes normal facial exam Mouth: Normal oral and palatal mucosa present Throat: Yes posterior oropharynx normal Eyes: Other: Left eye pupil is dilated, lag in conversion when complared to right General: appearance normal, both eyes and all related structures Pupils: Equal, round and reactive pupils present Neck: Other: Tender cervical spine and trapezius muscles bilaterally Neck: Yes normal visual inspection, Yes no lymphadenopathy, Yes trachea midline and Yes supple Chest: Chest palpation & inspection: normal inspection of the chest and normal palpation of entire chest wall Resp: Effort & Inspection: normal respiratory effort and able to speak in complete sentences Auscultation: clear to auscultation bilaterally Cardio: Rate: regular rate Rhythm: regular rhythm Heart sounds: S1 normal heart sound present, S2 normal heart sound present and no murmurs GI: Inspection: Yes normal to inspection Palpation (GI): Soft to palpation, nontender and no guarding Auscultation: normal bowel sounds : General: Yes no CVA tenderness Back/Spine/Pelvis: Back: no CVA tenderness Skin: General skin exam: no rashes or lesions noted Neuro: Other: Limited exam because of mental status. Neck supple, non focal exam. Does not follow 2 step commands. General: oriented to person Cranial nerves: Yes CN's II-XII intact bilaterally and Yes Equal, round and reactive pupils present Cognition (Neuro): normal cognition Motor exam (neuro): 5/5 motor strength present throughout Extrem: General: Yes normal to inspection and Yes no pedal edema Psych: Appearance: grossly normal Speech and movement: Normal speech and movement present Affect: normal affect Attitude: cooperative Thought process: Normal thought process present Thought content: Normal thought content present Results Labs CBC & Chem 7: 10/14/21 07:37 10/14/21 07:37 Labs: Short CBC 10/13/21 10/14/21 Range/Units 22:12 07:37 WBC 9.5 8.3 (4.8-10.8) X10*3/uL Hgb 13.1 12.2 (12.0-16.0) g/dl Hct 39.9 38.4 (37.0-47.0) % Plt Count 295 297 (160-400) X10*3/uL [facility] 10/13/21 10/14/21 22:12 07:37 Sodium 143 145 Potassium 4.8 4.1 Chloride 109 H 109 H Carbon Dioxide 21 L 24 BUN 51 H 43 H Creatinine 1.81 H 1.45 H Calcium 9.7 9.2 Cardiac Enzymes 10/13/21 Range/Units 22:12 Total Creatine Kinase 149 H (26-140) U/L Liver Function 10/13/21 Range/Units 22:12 Total Bilirubin 0.6 (0.0-1.0) mg/dL AST 26 (5-31) U/L ALT 18 (0-31) U/L Alkaline Phosphatase 77 (39-117) U/L Albumin 4.2 (3.5-5.0) g/dL Assessment and Plan (1) Pneumonia: Qualifiers: Laterality: right Lung location: upper lobe of lung Pneumonia type: due to unspecified organism Qualified Code(s): J18.9 - Pneumonia, unspecified organism Status: Acute (2) Acute kidney injury: Status: Acute (3) Stroke: Qualifiers: Laterality of affected vessel: left Status: Acute This is a subacute to chronic left frontal infarct from several weeks ago. Recommend : carotid doppler and Echocardiogram. Metabolic / infectious encephalopathy superimposed on dementia. Her mental decline 2 months ago may be from thi sstroke that occurred in that time frame. REcom. Hydration, treat infection. (4) Elevated troponin: Status: Acute (5) Fall: Qualifiers: Encounter type: initial encounter Qualified Code(s): W19.XXXA - Unspecified fall, initial encounter Status: Acute 80-year-old female with history of advanced dementia presents to the hospital after having a fall at home. Found to have pneumonia, CHELITA as well as stroke # pneumonia - most likely community-acquired - COVID 19 negative - afebrile, no leukocytosis - will start her on IV antibiotics - follow cultures # CHELITA - most likely secondary to dehydration given history of dementia and recent weakness - will start her on IV fluids - follow BMP # stroke - CT of the head showed findings of subacute versus chronic stroke - has left eye pupil dilation - WILL START ON ASPIRIN, HIGH-DOSE STATIN, - will consult neurology - patient unable to have CT angiogram done due to CHELITA - will hold off on MRI pending neurology recommendation - echocardiogram - physical therapy and liver profile # elevated troponin - unclear etiology - denies having any chest pain - no EKG changes to suggest ACS - no delta on the high sensitivity troponin - monitor on telemetry # fall - sepsis secondary to weakness/stroke - physical therapy consult DVT prophylaxis: Lovenox Procedures Date of Service Date of Service: 10/14/21
--- NOTE | 2021-10-14 12:05 | PC.NURSE ---
patient was taken to US, will hand antibiotics upon her return
[2021-10-14] MEDS: Doxycycline Hyclate 100 MG in 0.9 % Sodium Chloride 250 ML 166.67 MG IV ×2 (13:04→22:14)
--- NOTE | 2021-10-14 13:43 | P.EN_ITS ---
Event Note Date of Service: 10/14/21 Event Note: day hospitalist update S: Unable to get reliable ROS from pt due to dementia. Denies complaints. O: VS- T 97.6, P 80, BP 141/70, R 18, SaO2 95 on RA gen- NAD lungs- CTAB CV- RRR no m/r/g abd- soft/NT derm- warm/well-perfused neuro- L pupil larger than R, reactive, normal strength in all 4 ext, oriented to self but not place or date psych- impaired insight labs- RVP negative, PCT 0.06, WBC 8.3, Cr 1.45 A/P: 80yo F with dementia presenting after fall, admitted for PNA + CHELITA and found to have evidence of subacute-chronic CVA # subacute/chronic CVA - TTE, carotid Dopplers, Neuro consult, ASA, atorvastatin # PNA - ceftriaxone + doxycycline d#1, follow BCx + trend PCT # troponin-I elevation - flat, likely due to CHELITA # HCELITA - Cr improving with IV hydration # HTN - amlodipine + metoprolol succinate # dementia # dispo - PT/OT/[employer] evaluations Discussed with pt's Tino. Notably pt had recent cataract surgery on the L eye
--- NOTE | 2021-10-14 13:49 | PC.NURSE ---
patient awake/alert, ate 100% lunch, abx running per order, will restart fluids when complete, continue to monitor.
--- NOTE | 2021-10-14 14:46 | PC.NURSE ---
respiratory notified for updraft
[2021-10-14 17:02] VITALS: BP 156/70; PULSE 91; RESP 18; TEMP 36.7; O2SAT 95
--- NOTE | 2021-10-14 17:04 | PC.NURSE ---
patient sleeping, woke to verbal stimulus, vss, no c/o pain or discomfort, ivf running per order, will continue to monitor.
--- NOTE | 2021-10-14 18:20 | PC.NURSE ---
patient alert to person, oob with 2 assist ambulated to bathroom, ivf running per order, pt dinner tray is set up, call zapata within reach, will continue to monitor.
[2021-10-14] MEDS: Albuterol/Iprat 2.5/0.5MG 3 ML AMPUL.NEB INHALE (20:02)
[2021-10-14 20:05] VITALS: PULSE 65; RESP 20; O2SAT 94
[2021-10-14] MEDS: Metoprolol Succinate ER 100 MG TAB.ER.24H PO (20:06)
[2021-10-14 20:41] VITALS: BP 162/83; PULSE 100; RESP 22; TEMP 36.6; O2SAT 100
[2021-10-15] VITALS (10 sets, daily range): BP systolic 123–154; BP diastolic 46–82; PULSE 77–95; RESP 14–20; TEMP 36.2–37.1; O2SAT 89–98
[2021-10-15] MEDS: Enoxaparin Sodium 40 MG/0.4 ML SYRINGE SUBCUT (04:21)
--- NOTE | 2021-10-15 05:39 | MHC.PIE ---
p; tele ordered for pt on 10/14 630 with no tele placed? i; ed charge notified. md notified p; tele placed, monitor shows afib i; md notified e; will cont to monitor
[2021-10-15] MEDS: amLODIPine Besylate 10 MG TABLET PO (07:49)
[2021-10-15] MEDS: Aspirin Enteric Coated 81 MG TABLET.DR PO (08:03)
[2021-10-15] MEDS: Lactated Ringers 1,000 ML 100 ML IVCONT (08:04)
--- NOTE | 2021-10-15 08:04 | PC.NURSE ---
patient alert to self no c/o pain or discomfort, ivf running per order, pt on school bus monitor pt in/out of afib with pvcs 80s, pt currently eating breakfast, will continue to monitor.
[2021-10-15] MEDS: Albuterol/Iprat 2.5/0.5MG 3 ML AMPUL.NEB INHALE ×2 (08:41→14:46)
[2021-10-15] MEDS: Doxycycline Hyclate 100 MG in 0.9 % Sodium Chloride 250 ML 166.67 MG IV ×2 (10:53→22:44)
[2021-10-15 11:45] LABS: Anion Gap 14 (12-20); Blood Urea Nitrogen 38 mg/dL (9-16); Calcium 8.9 mg/dL (8.4-10.2); Carbon Dioxide 22 mmol/L (22-29); Chloride 110 mmol/L (96-108); Creatinine Clr Calc Pharmacy 46.2; Estimated Glomerular Filt Rate 51; Glucose Random 82 mg/dL (60-115); Potassium 3.9 mmol/L (3.3-5.1); Sodium 142 mmol/L (135-145)
--- NOTE | 2021-10-15 13:20 | HO.PM.IMPN ---
Subjective Subjective Date of Service: 10/15/21 Interval History: More awake and oriented now Some cough; no dyspnea No fever Review of Systems Review of Systems: Yes all other systems are reviewed and are negative Physical Exam Vital Signs: Vital Signs: Last Vital Signs Temp 97.6 F 10/15/21 09:33 Pulse 86 10/15/21 09:33 Resp 18 10/15/21 09:33 BP 131/59 L 10/15/21 09:33 Pulse Ox 95 10/15/21 09:34 BMI result Body Mass Index 29.9 Gen: in no acute distress HEENT: L>R pupil s/p cataract surgery, sclera anicteric, moist mucus membranes Neck: supple Lungs: clear to auscultation bilaterally Heart: regular rate and rhythm, no murmurs Abd: soft, non-tender, non-distended Ext: no edema Skin: warm/well-perfused Neuro: alert and oriented x3, no focal findings Psych: appropriate affect Objective Data Active Medications Acetaminophen (Acetaminophen 325 Mg Tablet) 650 mg PO Q6H PRN PRN Reason: Pain, Mild (Pain Scale 1-3) Albuterol Sulfate (Albuterol Sulfate (0.083%) 2.5 Mg/3 Ml Vial.Neb) 2.5 mg INHALE Q2H PRN PRN Reason: shortness of breath or wheeze Albuterol/Ipratropium (Albuterol/Iprat 2.5/0.5mg 3 Ml Ampul.Neb) 3 ml INHALE RQ6H WHILE AWAKE [facility] Last Admin: 10/15/21 08:41 Dose: 3 ml Documented by: NORMA Amlodipine Besylate (Amlodipine Besylate 10 Mg Tablet) 10 mg PO DAILY [facility]; Protocol Last Admin: 10/15/21 07:49 Dose: 10 mg Documented by: AUREA Aspirin (Aspirin Enteric Coated 81 Mg Tablet.Dr) 81 mg PO DAILY [facility] Last Admin: 10/15/21 08:03 Dose: 81 mg Documented by: AUREA Atorvastatin Calcium (Atorvastatin Calcium 40 Mg Tablet) 40 mg PO BEDTIME [facility] Last Admin: 10/14/21 20:06 Dose: 40 mg Documented by: LOPEZ Docusate Sodium (Docusate Sodium 100 Mg Capsule) 100 mg PO DAILY PRN PRN Reason: Constipation Enoxaparin Sodium (Enoxaparin Sodium 40 Mg/0.4 Ml Syringe) 40 mg SUBCUT Q24H [facility] Last Admin: 10/15/21 04:21 Dose: 40 mg Documented by: LOPEZ Ceftriaxone Sodium 1 gm/ (Sodium Chloride) 50 mls @ 100 mls/hr IV Q24H [facility] Last Infusion: 10/14/21 22:11 Dose: 0 mls/hr Documented by: LOPEZ Lactated Ringer's (Lr) 1,000 mls @ 100 mls/hr IVCONT .Q10H [facility] Last Admin: 10/15/21 08:04 Dose: 100 mls/hr Documented by: AUREA Doxycycline Hyclate 100 mg/ (Sodium Chloride) 250 mls @ 166.67 mls/hr IV Q12H [facility] Last Admin: 10/15/21 10:53 Dose: 166.67 mls/hr Documented by: AUREA Metoprolol Succinate (Metoprolol Succinate Er 100 Mg Tab.Er.24h) 100 mg PO BEDTIME [facility]; Protocol Last Admin: 10/14/21 20:06 Dose: 100 mg Documented by: LOPEZ Ondansetron HCl (Ondansetron Hcl 4 Mg/2 Ml Vial) 4 mg IVPUSH Q8H PRN PRN Reason: Nausea and Vomiting Sodium Chloride (0.9 % Sodium Chloride Flush 3 Ml Syringe) 3 ml IVFLUSH QSHIFT [facility] Last Admin: 10/15/21 07:50 Dose: Not Given Documented by: AUREA Non-Admin Reason: IV Running Labs CBC & Chem 7: 10/14/21 07:37 10/15/21 10:49 Labs: Laboratory Results - last 24 hr 10/15/21 10:49 Anion Gap 14 Estim Creat Clear Calc 46.2 Estimated GFR 51 Random Glucose 82 Calcium 8.9 Impressions Carotid Doppler Study 10/14/21 12:56 IMPRESSION: There is carotid artery atherosclerotic disease. On the right, the mild atherosclerotic plaque causes < 50% ICA stenosis. There is no hemodynamically significant stenosis on the right. However, on the left, Doppler findings are more complex. There is diminished velocity flow in the left CCA which has tardus parvus waveform. This suggest possibility of a more proximal stenosis. There are Doppler imaging findings of severe stenosis of the proximal left external carotid artery. Although the left ICA only has a peak systolic velocity of 57 cm/s, the ICA/CCA ratio is abnormal (>4), which raises suspicion for hemodynamically significant stenosis (possible >70% stenosis). Consider correlation with CT angiography of the neck. Microbiology Microbiology Results: Microbiology 10/14/21 07:37 Blood Culture - Preliminary Blood - Venous No growth after 24 hours. 10/14/21 00:06 Blood Culture - Preliminary Blood - Venous No growth after 24 hours. Assessment and Plan (1) Fall: Status: Acute (2) Pneumonia: Status: Acute (3) Acute kidney injury: Status: Acute Assessment and Plan: 80yo F with dementia presenting after fall, admitted for PNA + CHELITA and found to have evidence of subacute-chronic CVA # subacute/chronic CVA - TTE, carotid Dopplers, Neuro consulted; secondary prevention with ASA, atorvastatin; PT/OT/COMMUNICATIONS TOWER CLIMBER evaluations # PNA - ceftriaxone + doxycycline d#2, follow BCx + trend PCT # troponin-I elevation - flat, likely due to CHELITA #? CHELITA - Cr improved with IV hydration; held triamterene-HCTZ # HTN - continue amlodipine + metoprolol succinate # dementia # dispo - PT/OT/COMMUNICATIONS TOWER CLIMBER evaluations # VTE ppx - LMWH Quality Stroke Does the patient have a stroke diagnosis?: No VTE Prior VTE?: No VTE Risk Level:: Medical - moderate - high VTE Device Contraindication: Treatment Not Indicated VTE Drug Contraindication: N/A - Med Ordered
--- NOTE | 2021-10-15 14:11 | PC.NURSE ---
patient awake/alert to person only, patient manager cardiac cath intact-afib on monitor, vitals stable ,pt has no c/o pain or discomfort, ivf running per order, will continue to monitor.
--- NOTE | 2021-10-15 17:05 | PC.NURSE ---
Pt incontinent of stool. Assisted RN to clean pt and change bedding. Pt oob to use bedside commode with 1 assist. RN Aware.
--- NOTE | 2021-10-15 22:11 | PC.NURSE ---
Assisted pt oob to use commode. Complete bedding change and pt repositioned. Rn aware
[2021-10-15] MEDS: Atorvastatin Calcium 40 MG TABLET PO (22:30)
[2021-10-15] MEDS: cefTRIAXone sodium 1 GM in 0.9 % Sodium Chloride 50 ML IV (22:31)
[2021-10-15] MEDS: Metoprolol Succinate ER 100 MG TAB.ER.24H PO (22:45)
[2021-10-16] VITALS (12 sets, daily range): BP systolic 129–154; BP diastolic 70–82; PULSE 78–102; RESP 18–20; TEMP 36.5–36.9; O2SAT 92–98
[2021-10-16] MEDS: traZODone HCL 50 MG TABLET PO (00:58)
[2021-10-16] MEDS: Enoxaparin Sodium 40 MG/0.4 ML SYRINGE SUBCUT (05:59)
[2021-10-16 07:39] LABS: Anion Gap 13 (12-20); Blood Urea Nitrogen 28 mg/dL (9-16); Carbon Dioxide 25 mmol/L (22-29); Chloride 110 mmol/L (96-108); Creatinine Clr Calc Pharmacy 55.3; Estimated Glomerular Filt Rate > 60; Glucose Random 86 mg/dL (60-115); Potassium 3.9 mmol/L (3.3-5.1); Sodium 144 mmol/L (135-145)
[2021-10-16 08:04] LABS: Procalcitonin 0.04 ng/mL
[2021-10-16] MEDS: Albuterol/Iprat 2.5/0.5MG 3 ML AMPUL.NEB INHALE ×3 (08:09→18:58)
[2021-10-16 08:25] LABS: Hemoglobin 12.7 g/dl (12.0-16.0); Mean Corpuscular HGB Conc 31.8 g/dl (31.0-35.0); Mean Corpuscular Hemoglobin 31.4 pg (27.0-33.0); Mean Corpuscular Volume 98.8 fL (80.0-98.0); Mean Platelet Volume 11.4 fL (9.4-12.3); Platelet Count 237 X10*3/uL (160-400); Red Blood Count 4.05 X10*6/uL (4.20-5.50); Red Cell Distribution Width 12.1 % (11.0-16.0); White Blood Count 6.9 X10*3/uL (4.8-10.8)
[2021-10-16] MEDS: Doxycycline Hyclate 100 MG in 0.9 % Sodium Chloride 250 ML 166.67 MG IV ×2 (10:36→23:11)
[2021-10-16] MEDS: Lactated Ringers 1,000 ML 100 ML IVCONT (10:37)
[2021-10-16] MEDS: Aspirin Enteric Coated 81 MG TABLET.DR PO (10:37)
[2021-10-16] MEDS: amLODIPine Besylate 10 MG TABLET PO (10:37)
--- NOTE | 2021-10-16 11:08 | MHC.SLORD ---
Speech Language Pathology Order Status: Order received for speech consult. CREDIT CHARGE AUTHORIZER attempted to see patient this morning for PO trials and speech-language screening. Patient refused to participate and refused to engage with the clinician, turning away and stating No. Per chart review, patient is on regular solids/thin liquids. RN this morning reported no difficulties with meals. MD notified. Order deferred to tomorrow morning. If concerns arise before then, please contact CREDIT CHARGE AUTHORIZER by ext. [phone] or [place] Message.
--- NOTE | 2021-10-16 11:27 | PC.NURSE ---
Pt is Alert, confused and slightly agitated, no IV access noted by this RN. 22G established in R wrist, Pt is Alert, oriented to person only at this time. Lungs with ins and exp wheezes, breathing treatment given this AM by respiratory. Pt offers no complaints at this time, call zapata within reach, medicated as per DEC orders, IV antibitoics running as per DEC orders along with LR. Awaiting bed assignment, bed alarm on, will continue to monitor.
--- NOTE | 2021-10-16 11:57 | P.PNIM_ITS ---
Subjective Subjective Date of Service: 10/16/21 Interval History: Patient seen soon after physical therapy evaluation, complaining of weakness, dizziness, say she feels terrible, unable to further describe her symptoms, says she was up all night feels tired, denies chest pain, denies shortness of breath. Review of Systems Review of Systems: Yes all other systems are reviewed and are negative Physical Exam Vital Signs: Vital Signs: Last Vital Signs Temp 98.1 F 10/16/21 06:24 Pulse 88 10/16/21 11:15 Resp 18 10/16/21 11:15 BP 151/82 H 10/16/21 11:15 Pulse Ox 97 10/16/21 11:15 BMI result Body Mass Index 29.9 Gen: Awake alert, in no acute distress Neck: supple Lungs: clear to auscultation bilaterally Heart: regular rate and rhythm, no murmurs Abd: soft, non-tender, bowel sounds audible non-distended Ext: no edema Skin: warm/well-perfused Neuro: Nonfocal, generalized tremor, no focal findings Psych: appropriate affect Objective Data Active Medications Acetaminophen (Acetaminophen 325 Mg Tablet) 650 mg PO Q6H PRN PRN Reason: Pain, Mild (Pain Scale 1-3) Albuterol Sulfate (Albuterol Sulfate (0.083%) 2.5 Mg/3 Ml Vial.Neb) 2.5 mg INHALE Q2H PRN PRN Reason: shortness of breath or wheeze Albuterol/Ipratropium (Albuterol/Iprat 2.5/0.5mg 3 Ml Ampul.Neb) 3 ml INHALE RQ6H WHILE AWAKE [facility] Last Admin: 10/16/21 08:09 Dose: 3 ml Documented by: LUCERO Amlodipine Besylate (Amlodipine Besylate 10 Mg Tablet) 10 mg PO DAILY [facility]; Protocol Last Admin: 10/16/21 10:37 Dose: 10 mg Documented by: VIVIANA Aspirin (Aspirin Enteric Coated 81 Mg Tablet.) 81 mg PO DAILY [facility] Last Admin: 10/16/21 10:37 Dose: 81 mg Documented by: VIVIANA Atorvastatin Calcium (Atorvastatin Calcium 40 Mg Tablet) 40 mg PO BEDTIME [facility] Last Admin: 10/15/21 22:30 Dose: 40 mg Documented by: DEVAN Docusate Sodium (Docusate Sodium 100 Mg Capsule) 100 mg PO DAILY PRN PRN Reason: Constipation Enoxaparin Sodium (Enoxaparin Sodium 40 Mg/0.4 Ml Syringe) 40 mg SUBCUT Q24H [facility] Last Admin: 10/16/21 05:59 Dose: 40 mg Documented by: DEVAN Ceftriaxone Sodium 1 gm/ (Sodium Chloride) 50 mls @ 100 mls/hr IV Q24H [facility] Last Admin: 10/15/21 22:31 Dose: 100 mls/hr Documented by: DEVAN Lactated Ringer's (Lr) 1,000 mls @ 100 mls/hr IVCONT .Q10H [facility] Last Admin: 10/16/21 11:43 Dose: Not Given Documented by: VIVIANA Non-Admin Reason: IV Running Doxycycline Hyclate 100 mg/ (Sodium Chloride) 250 mls @ 166.67 mls/hr IV Q12H [facility] Last Admin: 10/16/21 10:36 Dose: 166.67 mls/hr Documented by: VIVIANA Metoprolol Succinate (Metoprolol Succinate Er 100 Mg Tab.Er.24h) 100 mg PO BEDTIME [facility]; Protocol Last Admin: 10/15/21 22:45 Dose: 100 mg Documented by: DEVAN Ondansetron HCl (Ondansetron Hcl 4 Mg/2 Ml Vial) 4 mg IVPUSH Q8H PRN PRN Reason: Nausea and Vomiting Sodium Chloride (0.9 % Sodium Chloride Flush 3 Ml Syringe) 3 ml IVFLUSH QSHIFT [facility] Last Admin: 10/16/21 11:42 Dose: Not Given Documented by: VIVIANA Non-Admin Reason: IV Running Labs CBC & Chem 7: 10/16/21 06:40 10/16/21 06:40 Labs: Laboratory Results - last 24 hr 10/16/21 10/16/21 10/16/21 06:40 06:40 06:40 MCV 98.8 H MCH 31.4 MCHC 31.8 RDW 12.1 Plt Count 237 MPV 11.4 Absolute Nucleated RBC 0.000 Nucleated RBC % (auto) 0.0 Anion Gap 13 Estim Creat Clear Calc 55.3 Estimated GFR > 60 Random Glucose 86 Calcium 9.0 Procalcitonin 0.04 Microbiology Microbiology Results: Microbiology 10/14/21 07:37 Blood Culture - Preliminary Blood - Venous No growth after 48 hours. 10/14/21 00:06 Blood Culture - Preliminary Blood - Venous No growth after 48 hours. Assessment and Plan (1) Fall: Status: Acute (2) Acute kidney injury: Status: Acute (3) Stroke: Status: Acute (4) HTN (hypertension): Status: Acute Assessment and Plan: 80yo F with dementia presenting after fall, admitted for PNA + CHELITA and found to have evidence of subacute-chronic CVA # subacute/chronic CVA no new neurological symptoms, seen by Neurology they recommend echo and carotid Doppler, they recommend to treat metabolic and infectious etiologies for encephalopathy carotid Doppler showed left common carotid stenosis, will obtain vascular surgery consult Follow echo, continue with ASA, atorvastatin follow PT OT eval Patient declined speech therapy continue regular diet. # dizziness Patient feel dizzy and weak this morning question related to lack of sleep overnight continue close neurological followup. No new weakness, numbness, or focal deficit noted on exam. # PNA Denies cough or shortness of breath, on ceftriaxone + doxycycline d#3, BCx negative + trend PCT # troponin-I elevation - flat, likely due to CHELITA # CHELITA - Cr improved with IV hydration; held triamterene-HCTZ, DC IV fluid # HTN - elevated blood pressure, continue amlodipine + metoprolol succinate, DC fluids follow BP, adjust BP meds if remains elevated # acute toxic metabolic encephalopathy superimposed on dementia Treat infection check urinalysis, renal function normalized # dispo - coming from home, patient declined speech therapy eval, follow PT OT recommendation # VTE ppx - LMWH Quality Stroke Does the patient have a stroke diagnosis?: No VTE Prior VTE?: No VTE Risk Level:: Medical - moderate - high VTE Device Contraindication: Treatment Not Indicated VTE Drug Contraindication: N/A - Med Ordered
--- NOTE | 2021-10-16 13:00 | MHC.CM.PN ---
CM ATTEMPTED TO SEE PT IN ED OVERFLOW PT SLEEPING SOUNDLY AND DOES NOT RESPOND TO HER NAME NO FAMILY PRESENT IMM LEFT AT BEDSIDE CM TO REVISIT
--- NOTE | 2021-10-16 13:38 | MHC.STROKE ---
Addendum entered by Patti Rodriguez RN 10/16/21 14:19: I REVIEWED THIS CASE AGAI WITH DR WHITE AND POSED THE HUSBANDS QUESTIONS TO HIM. I THEN MET AGAIN WITH THE AND EXPLAINED WHAT DR WHITE SAID AND ANSWERED ALL OF HIS NEURO QUESTIONS. I UPDATED HIM AND EXPLAINED THAT THE DIRECT SALES REPRESENTATIVE WILL SEE HIM POSSIBLY LATER TODAY. Original Note: I MET WITH THE PATIENTS TODAY, HE HAD SEVERAL QUESTIONS, I REVIEWED THE PLAN OF CARE, HER DIAGNOSIS AND SOME OF HER LAB/TEST RESULTS. HE IS HER PRIMARY CAREGIVER. HE SAID SHE HAS BEEN MORE CONFUSED OVER THE PAST FEW MONTHS AND WITHIN THE PAST FEW DAYS HER LEGS GAVE OUT AND SHE IS SO WEAK. HER SCAN REVEALED A SUBACUTE/CHRONIC FRONTAL LOBE STROKE. I ASKED IF SHE EVER HAD AFIB, THIS WAS REPORTED BY THE EMT'S, HE SAID NO. I EXPLAINED WHAT THAT INVOLVES TO HIM FAR DEFICITS. I NEEDED TO REINFORCE MY MESSAGE SEVERAL TIMES BUT HE KEPT ASKING ABOUT HER PROGNOSIS AND IF SHE NEEDED REHAB. I RELAYED THIS MESSAGE TO THE DIRECT SALES REPRESENTATIVE. HE ALSO ASKED TO SPEAK WITH THE NEUROLOGIST AND I WILL ALSO RELAY THAT MESSAGE.
--- NOTE | 2021-10-16 13:50 | MHC.STROKE ---
KERI CELL PHONE [phone]
--- NOTE | 2021-10-16 13:59 | MHC.CM.PN ---
NURSE POWERTRAIN DESIGN ENGINEER NOTE ELECTRONIC MEDICAL RECORD REVIEWED ALONG WITH CASE DISCUSSED ON MULTIPLE DISCIPLIANRY ROUNDS MET FILEMON PATIENT TODAY MEDICARE IMMM UPDATED , HE TOLD ME HE WAS HAVING A PROCEDURE TOMORROW AND ASKED IF I WOULD CALL HIS , T/C TO HIS AARON SerraASHLEY LEFT FOR HER TO CALL ME FOR ANDIE DISCHARGE PLAN STR AT [facility] IF BED AVAILABILIRTY VS HOME WITH CARE TENDERS VNA FOR NSG HOME PT MEDICARE IMMM UPDATED
[2021-10-16] MEDS: iohexoL 350 MG/ML 100 ML INFUS..BTL 70 ML IV (14:24)
--- NOTE | 2021-10-16 15:24 | PC.NURSE ---
pt arrived on unit at 1430. pt settled, at bedside.
[2021-10-16] MEDS: 0.9 % Sodium Chloride Flush 3 ML SYRINGE IVFLUSH ×2 (16:35→21:25)
[2021-10-16] MEDS: Metoprolol Succinate ER 100 MG TAB.ER.24H PO (21:24)
[2021-10-16] MEDS: Atorvastatin Calcium 40 MG TABLET PO (21:24)
[2021-10-16] MEDS: cefTRIAXone sodium 1 GM in 0.9 % Sodium Chloride 50 ML IV (22:31)
[2021-10-16] MEDS: Albuterol Sulfate (0.083%) 2.5 MG/3 ML VIAL.NEB INHALE (23:40)
[2021-10-17] VITALS (10 sets, daily range): BP systolic 140–163; BP diastolic 67–89; PULSE 77–110; RESP 16–24; TEMP 36.2–36.8; O2SAT 92–99
[2021-10-17] MEDS: Enoxaparin Sodium 40 MG/0.4 ML SYRINGE SUBCUT (03:49)
[2021-10-17] MEDS: 0.9 % Sodium Chloride Flush 3 ML SYRINGE IVFLUSH ×3 (07:14→22:10)
[2021-10-17] MEDS: Albuterol/Iprat 2.5/0.5MG 3 ML AMPUL.NEB INHALE ×3 (07:56→21:24)
[2021-10-17] MEDS: Aspirin Enteric Coated 81 MG TABLET.DR PO (08:50)
[2021-10-17] MEDS: amLODIPine Besylate 10 MG TABLET PO (08:50)
[2021-10-17] MEDS: Doxycycline Hyclate 100 MG in 0.9 % Sodium Chloride 250 ML 166.67 MG IV ×2 (10:41→22:41)
--- NOTE | 2021-10-17 12:04 | MHC.SL.SWA ---
Speech Pathologist Impression: Oral Phase Dysphagia Risk of Aspiration Due to: Reduced Cognition Dysphasia Diet Status: Downgrade Liquid Consistency and Strategies for Safe Swallow: Liquid Intake Recommendation: Thin Liquid Intake Strategies: Small Sips Solid Food Consistency: Dietary Recommendations: Chopped/Advanced (NDD3) Additional Modifications to Solid Foods: Add sauces/gravies to food, avoid hard to chew solids Oral Medication Intake: Whole with Puree Compensatory Strategies and Precautions to be Taken for Safe Swallow: Sitting Upright (90 deg) Double Swallow Liquids from Cup Alternate Liquids/Solids Supervision While Eating and Drinking for Safe Swallow: Intermittent Supervision Foods to Avoid: Hard to chew solids Swallowing Recommended Treatments: Compens. Strategy Educat. Recommendation for Speech: Outpatient Speech Therapy Pt presents with oral phase dysphagia due to prolonged mastication and organization of bolus on solid consistencies. Pt reports that this is baseline, at home normally eats softer foods. Recommend DOWNGRADE to Chopped/Advanced (NDD3), with THIN liquids, Pills Whole with PUREE (Nursing reports this how they are currently administering). Nursing advised of recommendation, Diet Downgrade entered in orders by COMMUNICATION EQUIPMENT MECHANIC. Comment: f/u one time for toleration of diet recommendation. Frequency/Duration: 1X f/u Date Range for Service Req: 10/16-10/17 Timeline to reassess: Business Management Specialist Clinican/Clinical Fellow: No Supervisory Statement: I have reviewed and agree with the student/clinical fellow's documentation: N/A Speech Language Pathologist: Lise Monteiro M.A., CCC-COMMUNICATION EQUIPMENT MECHANIC
--- NOTE | 2021-10-17 12:27 | P.CONGS_ITS ---
History of Present Illness Consult details Consult date: 10/17/21 Reason for consult: other (Carotid stenosis) Narrative: Complex 80-year-old female with dementia persistent headaches was brought in by secondary to a fall. She had a significant workup. In upon workup she was noted to have carotid stenosis. She has undergone ultrasound and now CTA. She now presents to us for vascular evaluation. Review of Systems Review of Systems: Yes all other systems are reviewed and are negative Constitutional: Constitutional: Reports no additional constitutional complaints ENT: Reports Normal hearing present Cardiovascular: Cardiovascular: Denies chest pain, Denies chest pain at rest, Denies chest pain with activity and Denies pedal edema Respiratory: Respiratory: Denies cough Gastrointestinal: Gastrointestinal: Denies abdominal pain Musculoskeletal: Musculoskeletal: Denies abnormal gait, Denies muscle cramps and Denies radiating pain into limb Integumentary/Breasts: Skin/Breast: Denies skin ulcer and Denies wounds Neurologic: Reports Normal hearing present and Denies abnormal gait Psychiatric: Psychiatric: Reports no additional psychiatric complaints [facility] Past Medical History Medical History (Updated 10/17/21 @ 12:30 by Ronan Huitron MD) Bilateral cataracts Dementia Hearing loss HTN (hypertension) Incontinence Persistent headaches Tremor Vaginal prolapse Vitamin D deficiency Family History Family History Father Alzheimer disease Mother Alzheimer disease HTN (hypertension) Social History Social History Housing: House Alcohol intake: current Alcohol intake frequency: does not drink Patient Tobacco Use Status: Never used Tobacco e-Cigarette/Vaping Use: Never Used Current occupational status: retired [employer] Allergies Allergy/AdvReac Type Severity Reaction Status Date / Time No Known Allergies Allergy Verified 10/10/21 11:26 Active Medications: Current Medications Acetaminophen (Acetaminophen 325 Mg Tablet) 650 mg PO Q6H PRN PRN Reason: Pain, Mild (Pain Scale 1-3) Albuterol Sulfate (Albuterol Sulfate (0.083%) 2.5 Mg/3 Ml Vial.Neb) 2.5 mg INHALE Q2H PRN PRN Reason: shortness of breath or wheeze Last Admin: 10/16/21 23:40 Dose: 2.5 mg Documented by: Albuterol/Ipratropium (Albuterol/Iprat 2.5/0.5mg 3 Ml Ampul.Neb) 3 ml INHALE RQ6H WHILE AWAKE [facility] Last Admin: 10/17/21 07:56 Dose: 3 ml Documented by: Amlodipine Besylate (Amlodipine Besylate 10 Mg Tablet) 10 mg PO DAILY [facility]; P rotocol Last Admin: 10/17/21 08:50 Dose: 10 mg Documented by: Aspirin (Aspirin Enteric Coated 81 Mg Tablet.Dr) 81 mg PO DAILY [facility] Last Admin: 10/17/21 08:50 Dose: 81 mg Documented by: Atorvastatin Calcium (Atorvastatin Calcium 40 Mg Tablet) 40 mg PO BEDTIME [facility] Last Admin: 10/16/21 21:24 Dose: 40 mg Documented by: Docusate Sodium (Docusate Sodium 100 Mg Capsule) 100 mg PO DAILY PRN PRN Reason: Constipation Enoxaparin Sodium (Enoxaparin Sodium 40 Mg/0.4 Ml Syringe) 40 mg SUBCUT Q24H [facility] Last Admin: 10/17/21 03:49 Dose: 40 mg Documented by: Ceftriaxone Sodium 1 gm/ (Sodium Chloride) 50 mls @ 100 mls/hr IV Q24H [facility] Last Infusion: 10/16/21 23:14 Dose: Infused Documented by: Doxycycline Hyclate 100 mg/ (Sodium Chloride) 250 mls @ 166.67 mls/hr IV Q12H [facility] Last Infusion: 10/17/21 12:26 Dose: Infused Documented by: Metoprolol Succinate (Metoprolol Succinate Er 100 Mg Tab.Er.24h) 100 mg PO BEDTIME [facility]; Protocol Last Admin: 10/16/21 21:24 Dose: 100 mg Documented by: Ondansetron HCl (Ondansetron Hcl 4 Mg/2 Ml Vial) 4 mg IVPUSH Q8H PRN PRN Reason: Nausea and Vomiting Sodium Chloride (0.9 % Sodium Chloride Flush 3 Ml Syringe) 3 ml IVFLUSH QSHIFT [facility] Last Admin: 10/17/21 07:14 Dose: 3 ml Documented by: Physical Exam Vital Signs: Vital Signs: Last Vital Signs Temp 97.2 F 10/17/21 07:50 Pulse 77 10/17/21 08:00 Resp 18 10/17/21 08:00 BP 148/77 H 10/17/21 07:50 Pulse Ox 92 10/17/21 07:50 BMI result Body Mass Index 29.9 Const: General: cooperative, healthy appearing and comfortable Orientation/consciousness: oriented to person, oriented to place and oriented to time HENMT: Head: Yes normal to inspection Neck: Neck: Yes normal visual inspection Carotids: no bruits Chest: Chest palpation & inspection: normal inspection of the chest Resp: Effort & Inspection: normal respiratory effort and able to speak in complete sentences Auscultation: clear to auscultation bilaterally, no crackles, no rales, no rhonchi and no wheezes Cardio: Rate: regular rate Rhythm: regular rhythm Heart sounds: S1 normal heart sound present and S2 normal heart sound present Bruits: no carotid bruits Peripheral pulses: Peripheral pulses 2+ throughout GI: Inspection: Yes normal to inspection Skin: Wounds: no wounds Hair: normal Neuro: General: oriented to person, oriented to place and oriented to time Cranial nerves: Yes CN's II-XII intact bilaterally and Yes Normal hearing p resent Cognition (Neuro): normal cognition Motor exam (neuro): 5/5 motor strength present throughout Extrem: Other: venous exam: No significant superficial varicosities or spider telangiectasias, minimal edema General: No clubbing, No cyanosis and No edema Psych: Appearance: grossly normal Mental Status: mental status grossly normal Speech and movement: Normal speech and movement present Results Labs Result diagrams: 10/16/21 06:40 10/16/21 06:40 Labs: All other labs normal. Imaging Additional studies: CTA of the neck written report and images were reviewed. Assessment and Plan (1) Left carotid artery occlusion: Status: Acute In short patient has left carotid occlusion. This was confirmed by a CTA of the neck. This may be the source her embolic disease prior to the total occl usion. I would recommend an aspirin. Ideally would be dual anti-platelet but may not be ideal for her as she is at high fall risk. She can follow up with us as an outpatient to surveil the right side - as there is no significant disease on the right side for now. I she is stable from my perspective for discharge. Thank you for allowing us to assist in her care. If there are any questions or concerns please do not hesitate to contact us. Procedures Date of Service Date of Service: 10/17/21
--- NOTE | 2021-10-17 13:50 | MHC.CM.PN ---
CALLED AND SPOKE WITH PTS WHO EXPLAINS MTHAT THEY AHD NO SERVCEIS PRIOR TO ADMISISON BUT THAT HE FEELS HE CAN NOT MANAGE PT AT HOME AT THIS TIME REFERRALS WILL BE MADE TO [facility] PT DOES NOT HAVE A HCP ON FILE HERE OR WITH DR HAND OFFICE
--- NOTE | 2021-10-17 15:37 | HO.PM.IMPN ---
Subjective Subjective Date of Service: 10/17/21 Interval History: Patient more awake alert this morning answering questions appropriately, denies shortness of breath or cough, no chest pain no fever chills no other acute issues overnight. Review of Systems Review of Systems: Yes all other systems are reviewed and are negative Physical Exam Vital Signs: Vital Signs: Last Vital Signs Temp 97.4 F 10/17/21 12:00 Pulse 87 10/17/21 15:08 Resp 16 10/17/21 15:08 BP 149/67 H 10/17/21 12:00 Pulse Ox 93 10/17/21 14:27 BMI result Body Mass Index 29.9 Gen:? Awake alert, in no acute distress Neck: supple Lungs: clear to auscultation bilaterally Heart: regular rate and rhythm, no murmurs Abd: soft, non-tender, bowel sounds audible non-distended Ext: no edema Skin: warm/well-perfused Neuro:? Nonfocal, no focal findings, left pupil bigger than right status post cataract surgery. Psych: appropriate affect ? Objective Data Active Medications Acetaminophen (Acetaminophen 325 Mg Tablet) 650 mg PO Q6H PRN PRN Reason: Pain, Mild (Pain Scale 1-3) Albuterol Sulfate (Albuterol Sulfate (0.083%) 2.5 Mg/3 Ml Vial.Neb) 2.5 mg INHALE Q2H PRN PRN Reason: shortness of breath or wheeze Last Admin: 10/16/21 23:40 Dose: 2.5 mg Documented by: JENNIFER Albuterol/Ipratropium (Albuterol/Iprat 2.5/0.5mg 3 Ml Ampul.Neb) 3 ml INHALE RQ6H WHILE AWAKE COUNT INCLUDES THE [facility] Last Admin: 10/17/21 15:06 Dose: 3 ml Documented by: LUCERO Amlodipine Besylate (Amlodipine Besylate 10 Mg Tablet) 10 mg PO DAILY COUNT INCLUDES THE [facility]; Protocol Last Admin: 10/17/21 08:50 Dose: 10 mg Documented by: LENI Aspirin (Aspirin Enteric Coated 81 Mg Tablet.) 81 mg PO DAILY COUNT INCLUDES THE [facility] Last Admin: 10/17/21 08:50 Dose: 81 mg Documented by: LENI Atorvastatin Calcium (Atorvastatin Calcium 40 Mg Tablet) 40 mg PO BEDTIME COUNT INCLUDES THE [facility] Last Admin: 10/16/21 21:24 Dose: 40 mg Documented by: CAMRON Docusate Sodium (Docusate Sodium 100 Mg Capsule) 100 mg PO DAILY PRN PRN Reason: Constipation Enoxaparin Sodium (Enoxaparin Sodium 40 Mg/0.4 Ml Syringe) 40 mg SUBCUT Q24H COUNT INCLUDES THE [facility] Last Admin: 10/17/21 03:49 Dose: 40 mg Documented by: CAMRON Ceftriaxone Sodium 1 gm/ (Sodium Chloride) 50 mls @ 100 mls/hr IV Q24H COUNT INCLUDES THE [facility] Last Infusion: 10/16/21 23:14 Dose: 0 mls/hr Documented by: CAMRON Doxycycline Hyclate 100 mg/ (Sodium Chloride) 250 mls @ 166.67 mls/hr IV Q12H COUNT INCLUDES THE [facility] Last Infusion: 10/17/21 12:26 Dose: 0 mls/hr Documented by: LENI Metoprolol Succinate (Metoprolol Succinate Er 100 Mg Tab.Er.24h) 100 mg PO BEDTIME COUNT INCLUDES THE [facility]; Protocol Last Admin: 10/16/21 21:24 Dose: 100 mg Documented by: CAMRON Ondansetron HCl (Ondansetron Hcl 4 Mg/2 Ml Vial) 4 mg IVPUSH Q8H PRN PRN Reason: Nausea and Vomiting Sodium Chloride (0.9 % Sodium Chloride Flush 3 Ml Syringe) 3 ml IVFLUSH QSHIFT COUNT INCLUDES THE [facility] Last Admin: 10/17/21 07:14 Dose: 3 ml Documented by: LENI Labs CBC & Chem 7: 10/16/21 06:40 10/16/21 06:40 Assessment and Plan (1) Left carotid artery occlusion: Status: Acute (2) Acute kidney injury: Status: Acute (3) Acute dehydration: Status: Acute (4) Stroke: Status: Acute Assessment and Plan: 80yo F with dementia presenting after fall, admitted for PNA + CHELITA and found to have evidence of subacute-chronic CVA # subacute/chronic CVA/with complete left carotid occlusion ? no new neurological symptoms ? carotid Doppler showed left common carotid stenosis, CTA neck showed complete occlusion of left common carotid, seen by vascular surgeon Dr. Huitron he recommend aspirin and outpatient follow up ? Follow echo, continue with ASA, atorvastatin ? Patient declined speech therapy continue regular diet. Physical therapy recommend 247 care versus long-term care # dizziness resolved ? # PNA ?? Denies cough or shortness of breath, on ceftriaxone + doxycycline d#4,? BCx negative /procalcitonin 0.04 # troponin-I elevation - flat, likely due to CHELITA # CHELITA - Cr improved with IV hydration; held triamterene-HCTZ, DC IV fluid # HTN - few high blood pressure reading on amlodipine + metoprolol succinate, will follow avoid low blood pressure # acute toxic metabolic encephalopathy superimposed on dementia ?? Likely due to infection and CHELITA now resolved # dispo - coming from home, patient declined speech therapy eval, will discuss with social work instructor and patient regarding long-term care place vs home # VTE ppx - LMWH Quality Stroke Does the patient have a stroke diagnosis?: No VTE Prior VTE?: No VTE Risk Level:: Medical - moderate - high VTE Device Contraindication: Treatment Not Indicated VTE Drug Contraindication: N/A - Med Ordered
[2021-10-17] MEDS: Atorvastatin Calcium 40 MG TABLET PO (20:53)
[2021-10-17] MEDS: Metoprolol Succinate ER 100 MG TAB.ER.24H PO (20:53)
[2021-10-17] MEDS: cefTRIAXone sodium 1 GM in 0.9 % Sodium Chloride 50 ML IV (22:08)
[2021-10-18 03:45] VITALS: BP 144/79; PULSE 80; RESP 18; TEMP 36.5; O2SAT 96
[2021-10-18] MEDS: Enoxaparin Sodium 40 MG/0.4 ML SYRINGE SUBCUT (04:07)
[2021-10-18 07:25] VITALS: BP 150/71; PULSE 76; RESP 17; TEMP 36.2; O2SAT 98
--- NOTE | 2021-10-18 07:30 | CA_ITS ---
Transthoracic Echocardiogram Patient (Last, First, Middle): Purvi Lipscomb, Gender: Female Date of : 1940 Age: 80 Procedure Date: 10/18/2021 Procedure Type: Transthoracic Echocardiogram Location: S3W Height: 165.1 cm Weight: 81.65 kg BSA: 1.89 m2 Heart Rate: bpm BP: 144 / 80 mmHg Fishing Boat Mate: CARIDAD Hernandez MD: Elvis Patterson MD Symptoms: stroke Study Quality: Fair ECG Rhythm: Sinus Conclusions: - The left ventricular systolic function is normal. The visually estimated ejection fraction is >70%. - There is mild calcification of the aortic valve. - There is moderate posterior mitral annular calcification. Findings Left Ventricle Normal left ventricular cavity size. The left ventricular systolic function is normal. The visually estimated ejection fraction is >70%. There is no evidence of regional wall motion abnormalities. There is no dynamic left ventricular outflow tract obstruction. E/E prime ratio is between 8 and 15 consistent with indeterminate filling pressures. Evidence suggests grade I (mild) diastolic dysfunction. There is mild septal and mild basal asymmetric hypertrophy. Right Ventricle Normal right ventricular cavity size and systolic function. Atria The left atrium is mildly dilated. The right atrium is normal in size. Aortic Valve There is mild calcification of the aortic valve. There is no aortic valve stenosis. The mean gradient is 4 mmHg. There is trace (trivial) aortic valve regurgitation. Mitral Valve There is moderate posterior mitral annular calcification. There is trace mitral valve regurgitation. There is no mitral valve stenosis. Pulmonic Valve The pulmonic valve was not well visualized. Tricuspid Valve Normal tricuspid valve structure. There is trace tricuspid valve regurgitation. Tricuspid regurgitation envelope is inadequate for calculation of right ventricular systolic pressure. Great Vessels The aortic annulus, sinuses of valsalva, asc aorta, and aortic arch are normal in size. Venous The inferior vena cava was not well visualized. Pericardium/Pleural There is no evidence of pericardial effusion. Prior Study Comparison No prior study available for comparison. Measurements 2D Linear Measurements IVSd: 0.96 0.6-0.9/0.6-1.0 cm LVIDd: 3.63 3.9-5.3/4.2-5.9 cm LVIDd Index: 1.92 2.4-3.2/2.2-3.1 cm/m2 LVIDs: 2.43 2.0-3.6 cm LVPWd: 1.03 0.7-1.1 cm Ao Root: 3.00 2.1-3.5 cm LA Diam: 4.20 2.7-3.8/3.0-4.0 cm LAIDs Index: 2.22 1.5-2.3 cm/m2 LV Mass: 134.96 67-162/88-224 g LV Mass Index: 71.41 43-95/49-115 g/m2 LVOT Diam: 2.00 3.0+(-)1.3 cm 2D Systolic Function EF 4C: 62.80 >55% EF 2C: 66.30 >55% EF BiP: 64.40 >55% Mitral Valve MV Pk E: 0.96 MV PK A: 1.15 MV Decel Time: 137.00 E/A: 0.80 E'Lateral: 7.18 E'Medial: 6.31 E/E' Med: 15.20 E/E' Lat: 13.40 PHT: 40.00 MVA PHT: 5.50 Decel Cabell: 7.04 Aortic Valve AoV Pk Darren: 1.42 AoV Mn Darren: 0.96 AoV VTI: 0.30 AoV Pk Grad: 8.00 Aov Mn Grad: 4.00 FAIZAN Cont.VTI: 3.04 LVOT LVOT Pk Darren: 1.33 LVOT Mn Darren: 1.03 LVOT VTI: 0.29 LVOT Pk Grad: 7.00 LVOT Mn Grad: 5.00 LVOT Diam: 2.00 LVOT Area: 3.14 Diastolic Function MV Pk E: 0.96 MV Pk A: 1.15 E/A: 0.80 E'Medial: 6.31 E/E' Med: 15.20 E' Laterial: 7.18 E/E' Lat: 13.40 Right Ventricle TAPSE (mm): 1.91 TVS' Darren: 12.30 Tricuspid Valve RA Press: 3.00 Great Vessels Aorta Ao Root-2D: 3.00 2.0-3.7 cm Ao Asc: 3.10 2.1-3.4 cm Ao Arch: 2.90 Updated in Other Vendor System with Status of Final Isra Coleman MD electronically signed on 10/18/2021 1:18:59 PM with status of Final
[2021-10-18 08:13] VITALS: PULSE 77; RESP 16; O2SAT 94
[2021-10-18] MEDS: Albuterol/Iprat 2.5/0.5MG 3 ML AMPUL.NEB INHALE ×2 (08:13→13:57)
[2021-10-18] MEDS: amLODIPine Besylate 10 MG TABLET PO (08:28)
[2021-10-18] MEDS: 0.9 % Sodium Chloride Flush 3 ML SYRINGE IVFLUSH ×2 (08:28→14:18)
[2021-10-18] MEDS: Aspirin Enteric Coated 81 MG TABLET.DR PO (08:28)
--- NOTE | 2021-10-18 09:17 | MHC.CM.PN ---
PATIENT IS ABLE TO TELL THIS SOFTWARE APPLICATIONS DESIGNER WHERE SHE IS, HER DATE, AND WHO SHE TRUSTS IN HER LIFE TO HELP WITH MEDICAL DECISIONS IF NEEDED. PATIENT NAMES HER SPOUSE, CHARAN HER SOLE AGENT. SHE STATS SHE PREFERS JUST ONE AGENT. COPY UPLOADED INTO [employer]. [facility] IS OFFERING A BED. PATIENT IS AWARE.
--- NOTE | 2021-10-18 11:04 | MHC.STROKE ---
I CALLED THE PATIENTS KERI AND GAVE HIM AN UPDATE ON THE PATIENTS CONDITION. I DID RELAY THIS TO THE RN.
[2021-10-18 11:29] VITALS: BP 165/71; PULSE 114; RESP 19; TEMP 36.3; O2SAT 91
--- NOTE | 2021-10-18 11:34 | MHC.SLORD ---
Speech Language Pathology Order Status: Patient was leaving for procedure when SCREEN ROLLER arrived. Patient evaluated yesterday and recommended CHOPPED/ADVANCED (NDD3) solids and THIN liquids. Plan for f/u tomorrow morning.
[2021-10-18] MEDS: Metoprolol Succinate ER 50 MG TAB.ER.24H PO (12:03)
[2021-10-18 13:59] VITALS: PULSE 80; RESP 16; O2SAT 94
--- NOTE | 2021-10-18 15:01 | MHC.CM.PN ---
Addendum entered by Laura Bernard 10/18/21 15:04: [facility] LIAISON OKAYED BED OFFER WITH SPOUSE. CURRENTLY AWAITING INSURANCE AUTHORIZATION. AND RN AWARE Original Note: CALL TO SPOUSE/HCP CHARAN ([phone]) DETAILED MESSAGE LEFT ABOUT [facility] BED OFFER. REQUEST FOR CALL BACK. OF THIS NOTE, NO CALL BACK AND A SECOND CALL WAS PLACED TO SAME NUMBER. MESSAGE LEFT FOR CALL BACK PATIENT IS MEDICALLY CLEARED FOR DISCHARGE
[2021-10-18 15:31] VITALS: BP 155/70; PULSE 83; RESP 18; TEMP 36.6; O2SAT 92
--- NOTE | 2021-10-18 15:49 | PM.DS ---
DS: Providers Provider Date of Service: 10/18/21 Date of admission: 10/14/21 01:02 Primary care physician: Unknown Physician Consults: 10/14/21 04:25 Consult to Neurology Routine Consulting Provider: [facility] Reason for consultation: age indeterminate infarcts Has provider been notified: No 10/16/21 11:50 Consult to Vascular Surgery Routine Consulting Provider: Ronan Huitron Reason for consultation: left carotid stenosis Has provider been notified: No DS: Diagnosis Discharge Diagnosis (1) Left carotid artery occlusion: Status: Acute (2) Acute kidney injury: Status: Acute (3) Acute dehydration: Status: Acute (4) Stroke: Status: Acute DS: Summary Hospital Course Hospital Course: Chief Complaint: fall 80-year-old female with past medical history of advanced dementia, hypertension, who was brought into the hospital by her with complaints of a fall.? On my exam patient is alert, but confused and unable to give much history.? Therefore history is obtained from ED physician as well as EMR.? According to the hospital in patient was sitting at the table on this year over walker eating a sandwich and a soon as he left to go to the other room he heard the patient fall in the kitchen, he would back and found her lying on the kitchen floor.? There does not appear to be any loss of consciousness but the patient did report that she hit her head when she fell.? Is also report of patient having been feeling weak over the past several days.? She seemed to be more confused over the past several months and generally weaker.? A CT was ordered by her PCP but the patient refused.? I am unable to get review of system is patient is confused and is not really giving appropriate answers. On arrival to the ED patient is hemodynamically stable with no significant abnormal vitals for a slightly elevated blood pressure of 140/77 Labs are significant for WBC count of 9.5, BUN of 51, creatinine of 1.81, initial troponin of 53.7, increased to 54.8, BNP of 102, Chest CT showed prominent elevation of the right hemidiaphragm, mild bronchial wall thickening with ground-glass opacification noted in the right upper lobe which could be infectious versus inflammatory Head CT showed age indeterminate cerebrovascular accident in the left frontal lobe, subacute to chronic without associated mass effect nor hemorrhagic conversion. Hospital course 80yo F with dementia presenting after fall, admitted for PNA + CHELITA and found to have evidence of subacute-chronic CVA,? carotid Doppler showed left common carotid stenosis, CTA neck showed complete occlusion of left common carotid, seen by vascular surgeon Dr. Huitron he recommend aspirin and outpatient follow up, echocardiogram showed EF greater than 70%, grade 1 mild diastolic dysfunction and no evidence of wall motion abnormality, Patient has no significant neurological deficit, continue aspirin Lipitor and outpatient follow-up with vascular surgery, continue antihypertensive medications, dose of beta-tasia increased to 150 mg daily and continue norvasc. Patient also noted to have pneumonia blood cultures came back negative she is being discharged on 1 more day of by mouth antibiotics Acute renal failure likely due to diuretics, patient treated with IV fluids diuretics held renal function improved acute toxic metabolic encephalopathy superimposed on dementia resolved was likely due to acute kidney injury and infection Patient is now being discharged to rehab facility Time Spent with Patient Time attestation: Total time spent providing and/or coordinating discharge services: Discharge coordination time: Greater than 30 minutes Quality: Stroke Does the patient have a stroke diagnosis?: Yes Reason for No Anti-thrombotic at DC: Not indicated Reason for No Anticoagulant at DC: Not indicated Reason Not Initiating IV-Tpa: Not indicated Reason for No Anti-thrombotic by Day Two: N/A - Med Ordered Reason for No Statin at DC: N/A - Med Ordered Physical Exam Vital Signs: Vital Signs: Last Vital Signs Temp 97.9 F 10/18/21 15:31 Pulse 83 10/18/21 15:31 Resp 18 10/18/21 15:31 BP 155/70 H 10/18/21 15:31 Pulse Ox 92 10/18/21 15:31 BMI result Body Mass Index 29.9 Gen:? Awake alert, in no acute distress Neck: supple Lungs: clear to auscultation bilaterally Heart: regular rate and rhythm, no murmurs Abd: soft, non-tender, bowel sounds audible non-distended Ext: no edema Skin: warm/well-perfused Neuro:? Nonfocal, no focal findings, left pupil bigger than right status post cataract surgery. Psych: appropriate affect ? DS: Data Data Completed and Pending Labs on day of discharge: Preliminary micro results at discharge 10/14/21 07:37 Blood Culture - Preliminary Blood - Venous No growth after 48 hours. 10/14/21 00:06 Blood Culture - Preliminary Blood - Venous No growth after 48 hours. Discharge Plan Discharge Patient Disposition: Xfer [facility] Discharge Diagnosis: Acute toxic metabolic encephalopathy Subacute CVA Left carotid artery occlusion Pneumonia CHELITA Hypertension Referrals: Physician,Unknown J [Primary Care Provider] - 1 Week Discharge Medications: New atorvastatin 40 mg Tablet 40 mg PO BEDTIME Qty: 30 RF: 0 metoprolol succinate 50 mg Tablet Extended Release 24 Hr 50 mg PO DAILY Qty: 30 RF: 0 aspirin 81 mg Tablet,Delayed Release (Dr/Ec) 81 mg PO DAILY Qty: 30 RF: 0 cefuroxime axetil 500 mg Tablet 500 mg PO Q12H Qty: 2 RF: 0 doxycycline hyclate 100 mg Tablet 100 mg PO Q12H Qty: 2 RF: 0 Continued amlodipine 10 mg tablet 10 mg PO DAILY Qty: 90 RF: 3 metoprolol succinate 100 mg tablet extended release 24 hr 100 mg PO BEDTIME Qty: 90 RF: 3 Discontinued triamterene-hydrochlorothiazid 37.5-25 mg tablet 1 tab PO DAILY Qty: 90 RF: 3 Discharge Orders: Discharge Order (Routine); Ordered 10/18/21 Ordered By: Mark Mcfarland Diet: advance to usual diet Activity on Discharge: As tolerated Stand Alone Forms: Patient Portal Discharge page Care Plan Goals: Subacute CVA/pneumonia/encephalopathy/Chelita Health Concerns: Take 1 more day of antibiotics as prescribed Take Toprol-XL 50 mg at a.m. and 100 mg at bedtime, continue Norvasc Try midodrine/hydrochlorothiazide discontinued due to CHELITA Left carotid occlusion follow-up with vascular surgery for right carotid surveillance Plan of Treatment: Outpatient follow-up with primary care physician and vascular surgery Dr. Huitron Assessment: As per discharge summary Patient Instructions: Ischemic Stroke (GEN), Pneumonia (DC)
--- NOTE | 2021-10-18 15:53 | MHC.CM.PN ---
CALL FROM PATIENT'S SPOUSE WHO IS AGREEABLE TO [facility] BED OFFER. HE IS AWARE OF 1730 DC TO FACILITY VIA [facility]. IMM 10/18 IN CHART RN AND UNIT AWARE OF PLAN.
== END 2021-10-18 18:42 | disposition skilled nursing facility (03) | DRG 64 ==
LOC: HO.ED 22:11 → HO.EDOVER 10-14 01:14 → HO.S3 10-16 13:41
PROVIDERS: Family Medicine; Admitting Provider Internal Medicine; Emergency Provider Emergency Medicine Emergency Medical Services; Visit Provider Hospitalist
DX: I63.232 Cerebral infarction due to unspecified occlusion or stenosis of left carotid arteries (principal); J18.9 Pneumonia, unspecified organism; G92.8 Other toxic encephalopathy; N17.9 Acute kidney failure, unspecified; R79.89 Other specified abnormal findings of blood chemistry; I10 Essential (primary) hypertension; R53.1 Weakness; I48.91 Unspecified atrial fibrillation; R29.6 Repeated falls; Z91.81 History of falling; F03.90 Unspecified dementia, unspecified severity, without behavioral disturbance, psychotic disturbance, mood disturbance, and anxiety; E86.0 Dehydration; Z20.822 Contact with and (suspected) exposure to COVID-19; Z79.82 Long term (current) use of aspirin; Z79.899 Other long term (current) drug therapy
CPT/HCPCS: 36415; 70450; 70498; 71045; 71250; 72125; 80048; 80053; 80061; 82077; 82550; 83605; 83690; 83880; 84145; 84484; 85025; 85027; 87040; 87633; 87635; 92610; 93005; 93306; 93880; 94640; 96361; 96365; 96375; 97116; 97162; 97166; 97530; 97535; 99285; J0456; J0696; J1650; Q9967

== ENCOUNTER → 2021-11-30 12:53 | Outpatient (BNVA) | payer MEDICARE, SELFPAY | PROVIDERS: Visit Provider Obstetrics & Gynecology | DX: N81.4 Uterovaginal prolapse, unspecified (principal) | CPT/HCPCS: 99202 ==

== ENCOUNTER → 2022-01-02 13:34 | Outpatient (BNVA) | payer MEDICARE, SELFPAY | PROVIDERS: PCP Internal Medicine; Visit Provider Surgery Vascular Surgery | DX: I65.23 Occlusion and stenosis of bilateral carotid arteries (principal); Z79.82 Long term (current) use of aspirin; Z79.899 Other long term (current) drug therapy | CPT/HCPCS: 99212 ==

== ENCOUNTER 2022-02-26 09:53 | Outpatient (REF) | payer MEDICARE, SELFPAY ==
--- NOTE | ~2022-02-26 | US_ITS ---
EXAMINATION: US EXTRACRANIAL CAROTID DUPLEX, BILATERAL CLINICAL INFORMATION: This is an 81-year-old female with occlusion and/or stenosis of the carotid arteries. Carotid artery disease. COMPARISON: Comparison is made to a previous study dated 10/14/2021 which demonstrated bilateral 0-49% internal carotid artery stenoses. TECHNIQUE: Real-time ultrasound and Doppler techniques (integrating B-mode 2-D vascular images, Doppler spectral analysis and color-flow Doppler imaging) were utilized to interrogate the extracranial carotid arteries, the vertebral arteries and proximal subclavian arteries bilaterally. The degree of stenosis is determined by criteria similar to NASCET. FINDINGS: Right Side: 1. There is mild atherosclerotic plaque seen in the bifurcation/proximal ICA region. 2. The common carotid artery PSV proximally is 96 cm/s and distally 76 cm/s. 3. The proximal internal carotid artery velocities are 73 cm/s systolic and 12 cm/s diastolic. 4. The proximal external carotid artery PSV is 108 cm/s. 5. The vertebral artery appears occluded. It is not clearly seen and may be occluded. 6. The subclavian artery waveforms are normal. Left Side: 1. There is minimal atherosclerotic plaque seen in the bifurcation/proximal ICA region. 2. The common carotid artery PSV proximally is 20 cm/s and distally 88 cm/s. 3. The proximal internal carotid artery velocities are 35 cm/s systolic and 11 cm/s diastolic. 4. The proximal external carotid artery PSV is 70-71 cm/s. 5. The vertebral artery shows antegrade flow. 6. The subclavian artery waveforms are normal. US/US carotid duplex BI IMPRESSION: 1. RIGHT: Minimal, non-hemodynamically significant stenosis of the proximal right internal carotid artery corresponding to a 0-49% stenosis by velocity criteria. 2. LEFT: Minimal, non-hemodynamically significant stenosis of the proximal left internal carotid artery corresponding to a 0-49% stenosis by velocity criteria. 3. 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 Previously, the velocities were low. Therefore, this occlusion may be new. 4. There is no change in the category severity of disease when compared to the previous study dated 10/14/2021.
== END 2022-02-26 09:54 | disposition home or self-care (01) ==
LOC: HO.US 09:53
PROVIDERS: Visit Provider Surgery Vascular Surgery
DX: I65.23 Occlusion and stenosis of bilateral carotid arteries (principal)
CPT/HCPCS: 93880

== ENCOUNTER → 2022-03-08 13:05 | Outpatient (BNVA) | payer MEDICARE, SELFPAY | PROVIDERS: PCP Internal Medicine; Visit Provider Surgery Vascular Surgery | DX: I65.23 Occlusion and stenosis of bilateral carotid arteries (principal) | CPT/HCPCS: 99212 ==

== ENCOUNTER 2023-01-14 14:13 | Outpatient (REF) | payer MEDICARE, SELFPAY ==
[2023-01-14 16:20] LABS: MANUAL DIFF FLAG NO
[2023-01-14 16:22] LABS: Basophils Percent Auto 0.4 % (0-2); Eosinophils Absolute Auto 0.1 X10*3/uL (0.0-0.4); Eosinophils Percent Auto 1.4 % (0-4); Hematocrit 39.8 % (37.0-47.0); Hemoglobin 12.1 g/dl (12.0-16.0); Imm Gran Abs Auto 0.03 X10*3/uL (0.00-0.03); Imm Gran Pct Auto 0.4 % (0.0-0.4); Lymphocytes Absolute Auto 1.5 X10*3/uL (1.2-4.9); Lymphocytes Percent Auto 17.8 % (20-40); Mean Corpuscular HGB Conc 30.4 g/dl (31.0-35.0); Mean Corpuscular Hemoglobin 28.1 pg (27.0-33.0); Mean Corpuscular Volume 92.6 fL (80.0-98.0); Mean Platelet Volume 11.9 fL (9.4-12.3); Monocytes Absolute Auto 0.8 X10*3/uL (0.1-1.2); Monocytes Percent Auto 9.5 % (2-11); Neutrophils Absolute Auto 5.9 x10*3/uL (2.0-8.3); Neutrophils Percent Auto 70.5 % (45-73); Platelet Count 305 X10*3/uL (160-400); Red Cell Distribution Width 15.2 % (11.0-16.0); White Blood Count 8.4 X10*3/uL (4.8-10.8)
[2023-01-14 16:45] LABS: Alanine Aminotransferase 21 U/L (0-31); Albumin Level 4.2 g/dL (3.5-5.0); Alkaline Phosphatase 108 U/L (39-117); Anion Gap 16 (12-20); Aspartate Amino Transferase 26 U/L (5-31); Bilirubin Total 0.6 mg/dL (0.0-1.0); Blood Urea Nitrogen 31 mg/dL (9-16); Calcium 9.6 mg/dL (8.4-10.2); Carbon Dioxide 25 mmol/L (22-29); Chloride 108 mmol/L (96-108); Cholesterol 128 mg/dL; Estimated Glomerular Filt Rate 38; Glucose Fasting 97 mg/dL (60-99); HDL Cholesterol 41 mg/dL; LDL Cholesterol Calculated 70 mg/dl; Potassium 5.2 mmol/L (3.3-5.1); Sodium 144 mmol/L (135-145); Total Protein 7.3 g/dL (6.5-8.0); Triglycerides 88 mg/dL
[2023-01-14 18:46] LABS: Vitamin D 25-OH Total 31.2 ng/mL (>30)
== END 2023-01-14 14:14 | disposition home or self-care (01) ==
LOC: HO.HMGCLDS 14:13
PROVIDERS: PCP Internal Medicine; Visit Provider Internal Medicine
DX: F03.90 Unspecified dementia, unspecified severity, without behavioral disturbance, psychotic disturbance, mood disturbance, and anxiety (principal); I10 Essential (primary) hypertension; E55.9 Vitamin D deficiency, unspecified
CPT/HCPCS: 36415; 80053; 80061; 82306; 84443; 85025

== ENCOUNTER 2023-01-21 15:57 | Outpatient (REF) | payer MEDICARE, SELFPAY ==
[2023-01-21 17:15] LABS: Anion Gap 16 (12-20); Blood Urea Nitrogen 29 mg/dL (9-16); Calcium 9.2 mg/dL (8.4-10.2); Carbon Dioxide 21 mmol/L (22-29); Chloride 107 mmol/L (96-108); Estimated Glomerular Filt Rate 42; Glucose Random 101 mg/dL (60-115); Potassium 4.6 mmol/L (3.3-5.1); Sodium 139 mmol/L (135-145)
== END 2023-01-21 15:58 | disposition home or self-care (01) ==
LOC: HO.LAB 15:57
PROVIDERS: PCP Internal Medicine; Visit Provider Internal Medicine
DX: I10 Essential (primary) hypertension (principal)
CPT/HCPCS: 36415; 80048

== ENCOUNTER 2023-03-29 10:31 | Outpatient (REF) | payer MEDICARE, SELFPAY ==
[2023-03-29 12:35] LABS: Alanine Aminotransferase 15 U/L (0-31); Albumin Level 3.9 g/dL (3.5-5.0); Alkaline Phosphatase 98 U/L (39-117); Anion Gap 16 (12-20); Aspartate Amino Transferase 21 U/L (5-31); Bilirubin Total 0.7 mg/dL (0.0-1.0); Blood Urea Nitrogen 26 mg/dL (9-16); Calcium 9.3 mg/dL (8.4-10.2); Carbon Dioxide 23 mmol/L (22-29); Chloride 108 mmol/L (96-108); Estimated Glomerular Filt Rate 46; Glucose Random 86 mg/dL (60-115); Potassium 4.5 mmol/L (3.3-5.1); Sodium 142 mmol/L (135-145)
== END 2023-03-29 10:32 | disposition home or self-care (01) ==
LOC: HO.HMGCLDS 10:31
PROVIDERS: PCP Internal Medicine; Visit Provider Internal Medicine
DX: I12.9 Hypertensive chronic kidney disease with stage 1 through stage 4 chronic kidney disease, or unspecified chronic kidney disease (principal); N18.30 Chronic kidney disease, stage 3 unspecified
CPT/HCPCS: 36415; 80053

== ENCOUNTER 2023-04-04 11:34 | Outpatient (REF) | payer MEDICARE, SELFPAY ==
--- NOTE | ~2023-04-04 | XR_ITS ---
EXAMINATION: XR CHEST CLINICAL INFORMATION: Cough COMPARISON: Previous chest x-ray and chest CT most recent September 2021 TECHNIQUE: Frontal view of the chest was obtained. FINDINGS: The cardiac silhouette does not appear enlarged. There is mitral annular calcification. There is large esophageal hernia. There is elevation of the right hemidiaphragm. There is volume loss to the left hemithorax with shift of the central mediastinal structures to the left. There is mild biapical pleural thickening. There is crowding of the central bronchovascular markings in the right lung due to low lung volumes and elevated right hemidiaphragm similar to previous exam. The left lung is clear. No pleural effusion or pneumothorax. Degenerative changes of the spine. XR/XR chest 1V IMPRESSION: Stable chest x-ray. Elevated right hemidiaphragm, volume loss to the left hemithorax and large esophageal hernia similar to 2020 exams.
== END 2023-04-04 11:35 | disposition home or self-care (01) ==
LOC: HO.HMGCX 11:34
PROVIDERS: PCP Internal Medicine; Visit Provider Internal Medicine
DX: R05.9 Cough, unspecified (principal)
CPT/HCPCS: 71045

== ENCOUNTER 2023-08-01 10:28 | Outpatient (REF) | payer MEDICARE, SELFPAY ==
[2023-08-01 13:38] LABS: Alanine Aminotransferase 16 U/L (0-31); Albumin Level 3.9 g/dL (3.5-5.0); Alkaline Phosphatase 91 U/L (39-117); Anion Gap 17 (12-20); Aspartate Amino Transferase 23 U/L (5-31); Bilirubin Total 0.5 mg/dL (0.0-1.0); Blood Urea Nitrogen 31 mg/dL (9-16); Calcium 9.5 mg/dL (8.4-10.2); Carbon Dioxide 21 mmol/L (22-29); Chloride 108 mmol/L (96-108); Cholesterol 119 mg/dL (<200); Estimated Glomerular Filt Rate 49; Glucose Fasting 83 mg/dL (60-99); HDL Cholesterol 35 mg/dL (>40); LDL Cholesterol Calculated 64 mg/dL (<100); Potassium 4.5 mmol/L (3.3-5.1); Sodium 141 mmol/L (135-145); Total Protein 7.1 g/dL (6.5-8.0); Triglycerides 102 mg/dL (<150)
[2023-08-01 13:42] LABS: TSH reflex Free T4 3.57 uIU/mL (0.32-4.0)
== END 2023-08-01 10:29 | disposition home or self-care (01) ==
LOC: HO.HMGCLDS 10:28
PROVIDERS: PCP Internal Medicine; Visit Provider Internal Medicine
DX: I12.9 Hypertensive chronic kidney disease with stage 1 through stage 4 chronic kidney disease, or unspecified chronic kidney disease (principal); N18.30 Chronic kidney disease, stage 3 unspecified; E78.5 Hyperlipidemia, unspecified
CPT/HCPCS: 36415; 80053; 80061; 84443; 85025

== ENCOUNTER → 2024-01-07 23:59 | Outpatient (BNV) | payer MEDICARE, SELFPAY | PROVIDERS: PCP Internal Medicine; Visit Provider Internal Medicine | DX: I48.91 Unspecified atrial fibrillation (principal); R06.02 Shortness of breath | CPT/HCPCS: 99223 ==